=== PATIENT | male | born 1945 | race Caucasian/White ===

== ENCOUNTER 2017-04-21 05:26 | Inpatient (IN) | payer MEDICARE, OTHER ==
[2017-04-21 06:02] LABS: PARTIAL THROMBOPLASTIN TIME 37.8 SEC (23.5-35.8)
[2017-04-21 06:03] LABS: ABSOLUTE LYMPHOCYTES (AUTO) 0.6 10^3/uL (0.5-4.7); ABSOLUTE MONOCYTES (AUTO) 0.1 10^3/uL (0.1-1.4); ABSOLUTE NEUT (AUTO) 3.9 10^3/uL (1.7-8.2); BASOPHILS % (AUTO) 0.3 % (0-2); EOSINOPHILS % (AUTO) 0.2 % (0-6); HEMATOCRIT 38.9 % (37.9-51.0); HEMOGLOBIN 12.6 g/dL (13.5-17.0); HGB HCT DIFFERENCE -1.1; LYMPHOCYTES % (AUTO) 13.9 % (13-45); MEAN CORPUSCULAR HEMOGLOBIN 27.8 pg (27.0-33.4); MEAN CORPUSCULAR HGB CONC 32.4 g/dL (32.0-36.0); MEAN CORPUSCULAR VOLUME 86 fl (80-97); MONOCYTES % (AUTO) 1.4 % (3-13); RED BLOOD COUNT 4.54 10^6/uL (4.35-5.55); RED CELL DISTRIBUTION WIDTH 15.8 % (11.5-14.0); SEGMENTED NEUTROPHILS % (AUTO) 84.2 % (42-78); WHITE BLOOD COUNT 4.6 10^3/uL (4.0-10.5)
[2017-04-21 06:12] LABS: ALANINE AMINOTRANSFERASE 28 U/L (21-72); ALBUMIN 3.2 g/dL (3.5-5.0); ALKALINE PHOSPHATASE 128 U/L (38-126); ANION GAP 12 (5-19); ASPARTATE AMINO TRANSFERASE 19 U/L (17-59); BILIRUBIN,DIRECT 0.6 mg/dL (0.0-0.4); BILIRUBIN,TOTAL 1.3 mg/dL (0.2-1.3); BLOOD UREA NITROGEN 23 mg/dL (7-20); CALCIUM 8.8 mg/dL (8.4-10.2); CARBON DIOXIDE 25 mmol/L (22-30); CHLORIDE 103 mmol/L (98-107); CREATINE KINASE 72 U/L (55-170); GLUCOSE 74 mg/dL (75-110); POTASSIUM 4.2 mmol/L (3.6-5.0); SODIUM 140.4 mmol/L (137-145); TOTAL PROTEIN 5.7 g/dL (6.3-8.2)
[2017-04-21 06:25] LABS: CREATINE KINASE MB 0.39 ng/mL (<4.55); TROPONIN I 0.013 ng/mL
--- NOTE | 2017-04-21 06:26 | ER Document Report ---
ED General - General Mode of Arrival: Medic Information source: Patient TRAVEL OUTSIDE OF THE [place] IN LAST 30 DAYS: No - HPI Onset: This morning - Refer to HPI notes Similar symptoms previously: No Recently seen / treated by doctor: No <GORGE SAWYER - Last Filed: 04/21/17 09:06> <AISHA SAGASTUME - Last Filed: 04/21/17 10:05> - General Stated Complaint: CHEST PAIN Time Seen by Provider: 04/21/17 06:17 Notes: Patient is a 72 year old male presenting to the emergency department for chest pain and shortness of breath. Patient states he woke up between 1:30-2:00 this morning with the pain. Patient was brought in by EMS and had an initial pressure of 138/90. Patient was given 2 sublingual nitroglycerin and then had a systolic pressure of 89. Patient also states he fell at home recently. Patient states he had open heart surgery in 2007. Patient also has a history of CHF, CAD , A-fib, COPD, BPH, hypertension, hypercholesterolemia, and chronic lower extremity edema. (GORGE SAWYER) - Related Data Allergies/Adverse Reactions: mycins Allergy (Uncoded 11/15/15 17:38) Home Medications: Current Home Medications Isosorbide Mononitrate [Isosorbide Mononitrate ER] 15 mg PO DAILY 04/21/17 [ History] Metoprolol Succinate [Toprol Xl 25 mg Tab.sr] 50 mg PO DAILY 04/21/17 [History] Potassium Chloride [Potassium Chloride] 20 meq PO BID 04/21/17 [History] Warfarin Sodium [Warfarin Sodium] 56 mg PO DAILY 04/21/17 [History] Past Medical History - General Information source: Patient, [facility] Records - Social History Smoking Status: Smoker,Current Status Unk Family History: None - Past Medical History Cardiac Medical History: Reports: Hx Atrial Fibrillation, Hx Congestive Heart Failure, Hx Coronary Artery Disease, Hx Hypercholesterolemia, Hx Hypertension Pulmonary Medical History: Reports: Hx COPD Past Surgical History: Reports: Hx Cardiac Surgery - x6 cardiac bypass 2007 - Immunizations Hx Diphtheria, Pertussis, Tetanus Vaccination: Yes Hx Pneumococcal Vaccination: 09/21/08 <GORGE SAWYER - Last Filed: 04/21/17 09:06> Review of Systems - Review of Systems Constitutional: No symptoms reported EENT: No symptoms reported Cardiovascular: See HPI, Chest pain Respiratory: See HPI Gastrointestinal: See HPI Genitourinary: No symptoms reported Male Genitourinary: No symptoms reported Musculoskeletal: No symptoms reported Skin: No symptoms reported Hematologic/Lymphatic: No symptoms reported Neurological/Psychological: No symptoms reported -: Yes All other systems reviewed and negative <DAPHNEGORGE RILEY - Last Filed: 04/21/17 09:06> Physical Exam - Vital signs Interpretation: Hypotensive - 73/56 at 06:15, Febrile - General General appearance: Appears well, Alert In distress: Mild - HEENT Head: Normocephalic, Atraumatic Eyes: Normal Pupils: PERRL Mucous membranes: Moist - Respiratory Respiratory status: No respiratory distress Chest status: Nontender Breath sounds: Normal Chest palpation: Normal - Cardiovascular Rhythm: Regular Heart sounds: Normal auscultation Murmur: No - Abdominal Inspection: Obese Distension: No distension Bowel sounds: Normal Tenderness: Tender - epigastric tenderness to palpitation Organomegaly: No organomegaly - Back Back: Normal - Extremities General upper extremity: Normal inspection, Normal ROM, Normal strength General lower extremity: Edema - pitting edema to the lower extremities bilaterally, Normal ROM, Normal strength, Other - skin thickening bilaterally, right leg is warm to touch with erythema, skin is lichenified bilaterally - Neurological Neuro grossly intact: Yes Cognition: Normal Orientation: AAOx4 Constance Coma Scale Eye Opening: Spontaneous [place] Coma Scale Verbal: Oriented Constance Coma Scale Motor: Obeys Commands Constance Coma Scale Total: 15 Speech: Normal - Psychological Associated symptoms: Normal affect, Normal mood - Skin Skin Temperature: Warm Skin Moisture: Dry <GORGE SAWYER - Last Filed: 04/21/17 09:06> - Back Back: Tender - Diffusely tender to palpate <AISHA SAGASTUME - Last Filed: 04/21/17 10:05> - Vital signs Vitals: Pulse Ox 99 04/21/17 05:27 Course - Laboratory Result Diagrams: 04/21/17 05:30 04/21/17 05:30 <GORGE SAWYER - Last Filed: 04/21/17 09:06> - Laboratory Result Diagrams: 04/21/17 05:30 04/21/17 05:30 - Diagnostic Test Radiology reviewed: Image reviewed, Reports reviewed - CXR-cardiomegaly, no acute process - EKG Interpretation by Me EKG shows normal: Phil Campbell, Intervals, ST-T Waves. abnormal: QRS Complexes - Borderline R progression in the anterior leads Rate: Normal - 76 Rhythm: A.Fib Phil Campbell/QRS: LAHB/LAFB Voltage: Decreased voltage - Consults Dr. Gorman Time consulted: 08:40 Consulted provider: will come to ER Dr. Newman Consulted provider: will come to ER - Will come place a central line in this patient. <AISHA SAGASTUME - Last Filed: 04/21/17 10:05> - Vital Signs Vital signs: Temp Pulse Resp BP Pulse Ox 97.8 F 76 22 H 74/48 L 99 04/21/17 07:59 04/21/17 06:45 04/21/17 09:38 04/21/17 09:38 04/21/17 09:36 - Laboratory Laboratory results interpreted by me: 04/21/17 04/21/17 04/21/17 05:30 05:30 05:30 Hgb 12.6 L RDW 15.8 H Plt Count 143 L Seg Neutrophils % 84.2 H Monocytes % 1.4 L PT APTT BUN 23 H Creatinine 1.50 H Est GFR ( Amer) 55 L Est GFR (Non-Af Amer) 46 L Glucose 74 L Lactic Acid Direct Bilirubin 0.6 H Alkaline Phosphatase 128 H NT-Pro-B Natriuret Pep 1800 H Total Protein 5.7 L Albumin 3.2 L TSH Urine Protein Urine Urobilinogen 04/21/17 04/21/17 04/21/17 05:30 05:30 05:30 Hgb RDW Plt Count Seg Neutrophils % Monocytes % PT 25.0 H APTT 37.8 H BUN Creatinine Est GFR ( Amer) Est GFR (Non-Af Amer) Glucose Lactic Acid 2.7 H Direct Bilirubin Alkaline Phosphatase NT-Pro-B Natriuret Pep Total Protein Albumin TSH 5.42 H Urine Protein Urine Urobilinogen 04/21/17 07:20 Hgb RDW Plt Count Seg Neutrophils % Monocytes % PT APTT BUN Creatinine Est GFR ( Amer) Est GFR (Non-Af Amer) Glucose Lactic Acid Direct Bilirubin Alkaline Phosphatase NT-Pro-B Natriuret Pep Total Protein Albumin TSH Urine Protein 100 H Urine Urobilinogen 2.0 H Critical Care Note - Critical Care Note Total time excluding time spent on procedures (mins): 45 <AISHA SAGASTUME - Last Filed: 04/21/17 10:05> Discharge <GORGE SAWYER - Last Filed: 04/21/17 09:06> - Discharge Admitting Provider: Hospitalist Unit Admitted: ICU <AISHA SAGASTUME - Last Filed: 04/21/17 10:05> - Discharge Clinical Impression: Lymphedema, Chronic atrial fibrillation, Anticoagulated on Coumadin Sepsis Qualifiers: Sepsis type: sepsis due to unspecified organism Qualified Code(s): A41.9 - Sepsis, unspecified organism Hypotension Qualifiers: Hypotension type: unspecified hypotension type Qualified Code(s): I95.9 - Hypotension, unspecified Cellulitis Qualifiers: Site of cellulitis: extremity Site of cellulitis of extremity: lower extremity Laterality: right Qualified Code(s): L03.115 - Cellulitis of right lower limb Fever Qualifiers: Fever type: unspecified Qualified Code(s): R50.9 - Fever, unspecified GERD (gastroesophageal reflux disease) Qualifiers: Esophagitis presence: esophagitis presence not specified Qualified Code(s): K21.9 - Gastro-esophageal reflux disease without esophagitis Chronic back pain Qualifiers: Back pain location: back pain in unspecified location Back pain laterality: unspecified Qualified Code(s): M54.9 - Dorsalgia, unspecified Condition: Fair Disposition: ADMITTED INPATIENT Scribe Attestation: 04/21/17 10:05 I personally performed the services described in the documentation, reviewed and edited the documentation which was dictated to the scribe in my presence, and it accurately records my words and actions. (AISHA SAGASTUME) Scribe Documentation - Scribe Written by Scribeliecer:: Nea Pisano 04/21/17 6:50 acting as scribe for :: Ania <GORGE SAWYER - Last Filed: 04/21/17 09:06>
[2017-04-21] MEDS ORDERED: MAG HYDROX/AL HYDROX/SIMETH SUSP 30 ML UDCUP PO ONE (06:27)
[2017-04-21] MEDS ORDERED: FAMOTIDINE INJ/PF 20 MG/2 ML SDV IV ONE (06:27)
[2017-04-21] MEDS ORDERED: LIDOCAINE 2% VISCOUS SOLN 20 ML UDCUP PO ONE (06:27)
[2017-04-21] MEDS ORDERED: MORPHINE SULFATE 10 MG/ML INJ IV ONE ×2 (06:29→08:33)
[2017-04-21] MEDS ORDERED: ONDANSETRON HCL INJ/PF 4 MG/2 ML SDV IV ONE (06:29)
[2017-04-21] MEDS ORDERED: IPRATROPIUM/ALBUTEROL 0.5-2.5 MG/3 ML AMPUL NEB ONE (06:33)
--- NOTE | 2017-04-21 06:34 | RADIOLOGY REPORT (SQ) ---
EXAM DESCRIPTION: CHEST SINGLE VIEW COMPLETED DATE/TIME: 04/21/2017 6:10 am REASON FOR STUDY: CP COMPARISON: Chest x-ray 11/20/2015 EXAM PARAMETERS: NUMBER OF VIEWS: One view. TECHNIQUE: Single frontal radiographic view of the chest acquired. RADIATION DOSE: NA LIMITATIONS: The patient is rotated. FINDINGS: LUNGS AND PLEURA: No consolidation, pleural effusion or pneumothorax. MEDIASTINUM AND HILAR STRUCTURES: No masses. Contour normal. HEART AND VASCULAR STRUCTURES: The heart remains enlarged. No overt vascular congestion. BONES: No acute findings. HARDWARE: Sternotomy wires are present. IMPRESSION: Stable cardiomegaly. Otherwise, no acute radiographic finding in the chest. TECHNICAL DOCUMENTATION: JOB ID: [id number]
[2017-04-21] MEDS ORDERED: ERTAPENEM SODIUM INJ 1 GM VIAL IV ONE (06:50)
[2017-04-21 06:58] LABS: ADD ON TESTING BLD IN LAB ACKNOWLEDGE
[2017-04-21 07:08] LABS: MAGNESIUM 1.9 mg/dL (1.6-2.3)
[2017-04-21] MEDS ORDERED: NORMAL SALINE 1000 ML 250 ML IV ONE (07:09)
[2017-04-21 07:26] LABS: FREE T3 3.33 pg/mL (2.77-5.27)
[2017-04-21] MEDS ORDERED: ACETAMINOPHEN 325 MG TABLET PO ONE (07:35)
[2017-04-21 07:39] LABS: APPEARANCE,URINE CLOUDY; BILIRUBIN,URINE NEGATIVE (NEGATIVE); GLUCOSE, URINE NEGATIVE (NEGATIVE); KETONES,URINE NEGATIVE (NEGATIVE); LEUKOCYTE ESTERASE,URINE NEGATIVE (NEGATIVE); NITRITE,URINE NEGATIVE (NEGATIVE); PROTEIN,URINE 100 mg/dL (NEGATIVE); URINE SPECIFIC GRAVITY 1.012
[2017-04-21 07:39] LABS: THYROID STIMULATING HORMONE 5.42 uIU/mL (0.47-4.68)
[2017-04-21] MEDS ORDERED: NORMAL SALINE 250 ML IV PRN (08:07)
[2017-04-21] MEDS ORDERED: NORMAL SALINE 1000 ML 1,000 ML IV ONE (08:44)
[2017-04-21] MEDS ORDERED: LIDOCAINE 1% INJ-PF (10 MG/ML) 30 ML SDV ONE (09:32)
[2017-04-21] MEDS ORDERED: DEXTROSE 5%-WATER 250 ML with NOREPINEPHRINE BITARTRATE 4 MG IV PRN ×2 (09:39)
[2017-04-21] MEDS ORDERED: NOREPINEPHRINE BITARTRATE INJ/PF 4 MG/4 ML SDV IV ONE ×2 (09:45→14:47)
--- NOTE | 2017-04-21 09:55 | EKG REPORT ---
SEVERITY:- ABNORMAL ECG - ATRIAL FIBRILLATION LEFT ANTERIOR FASCICULAR BLOCK LOW VOLTAGE THROUGHOUT BORDERLINE R WAVE PROGRESSION, ANTERIOR LEADS : Confirmed by: Corey Rodrigues 21-Apr-2017 09:54:43
[2017-04-21] MEDS ORDERED: ONDANSETRON HCL INJ/PF 4 MG/2 ML SDV IV PRN (10:10)
[2017-04-21] MEDS ORDERED: RINGERS SOLUTION,LACTATED 1,000 ML IV ONE (10:10)
[2017-04-21] MEDS ORDERED: ACETAMINOPHEN 325 MG TABLET PO PRN (10:10)
[2017-04-21] MEDS ORDERED: OXYCODONE-ACETAMINOPHEN 5-325 MG TABLET PO PRN (10:10)
[2017-04-21] MEDS ORDERED: MAGNESIUM HYDROXIDE SUSP 30 ML UDCUP PO PRN (10:10)
[2017-04-21] MEDS ORDERED: VANCOMYCIN HCL 0 MG in DEXTROSE 5%-WATER 250 ML IV NR (10:15)
--- NOTE | 2017-04-21 10:59 | OPERATIVE REPORT E ---
Operative Report NAME: GENI HERNANDEZ : 1945 AGE: 72Y DATE OF SURGERY: 04/21/2017 ROOM: ED02 PREOPERATIVE DIAGNOSIS: Poor vein for IV access in patient with hypotension due to sepsis. POSTOPERATIVE DIAGNOSIS: Poor vein for IV access in patient with hypotension due to sepsis. PROCEDURE: Placement of right femoral vein catheter. SURGEON: LAMONT SIN M.D. ANESTHESIA: Local. INDICATION: This is a 72-year-old male being seen in the emergency room for CHF, hypotension, and sepsis. Patient has been on Coumadin and his INR is about 2.1. Therefore, decision was made to put a temporary central line through the right femoral vein. DESCRIPTION OF PROCEDURE: The patient was placed in supine position and the right groin prepped and draped in the usual sterile fashion. The right femoral vein was then identified with ultrasound. It was eventually cannulated after several attempts. Guidewire was then passed through the needle towards the area of the inferior vena cava and the needle pulled out of the guidewire. Puncture site was dilated with an 11-blade and a dilator passed through the guidewire. Dilator was removed and triple lumen catheter was then inserted through the guidewire into the area of the inferior vena cava. The guidewire was removed and the ports were easily aspirated blood and easily injected saline. The catheter was then anchored to the skin with 3-0 silk. Biopatch was placed at the puncture site and a transparent sterile dressing placed over the Biopatch and catheter. The patient tolerated the procedure well. DICTATING PHYSICIAN: LAMONT SIN M.D. [id number] PHY#: [id number] ID: [id number] JOB#: [id number] ACCT: [id number] cc:LAMONT SIN M.D. > MTDD
[2017-04-21] MEDS ORDERED: CEFEPIME 1 GM/D5W RTU 1 GM/50 ML RTUPB IV ONE (11:45)
--- NOTE | 2017-04-21 11:47 | PDOC H&P ---
History of Present Illness Admission Date/PCP: 04/21/17 09:06 dr francois Patient complains of: chest pain History of Present Illness: GENI HERNANDEZ is a 72 year old male presents from home via EMS with reports of 8/10 chest pain ascted with SOA and nausea. ED MD reports relieved with GI cocktail when he was more awake and alert, since that time he has become hypotensive and less responsive. He has received IV morphine and approx 1.5L IVFs with levophed now running at 12mcg and last MAP 57. I can wake him but not long enough to provide a ROS or PMH and his family left when they were told he was to be admitted to the hospital. I spoke with his only surviving first degree relatives, his siblings Anna and Jelani, who report he is to be FULL CODE . Jelani found him on the side of the bathtub this morning c/o n/v "from the bad [place] stew I had last night", apparently kept him up all night with intense burning in his chest asct'd with SOA, dizziness and weakness as well. no reports of diarrhea. Jelani turned to get him something to help and the patient fell back into the tub, possibly striking his head but not sure, there was no LOC and no blood anywhere after the fall and he was alert and talking and making sense afterward. EMS called to find him ill-appearing and transported to the ED for further evaluation. he was given 324mg ASA enroute. eval here seems to reveal septic shock most likely source is his Right leg cellulitis that on further review his brother tells me has been "festering" for a couple of weeks and "he is too hard headed to do anything about it!" Dr Newman has placed a femoral central line for access and we were asked to admit to the ICU for further care. Past Medical History Cardiac Medical History: Reports: Atrial Fibrillation - on chronic anticoagulation, Congestive Heart Failure, Coronary Artery Disease, Hyperlipidema, Hypertension Pulmonary Medical History: Reports: Chronic Obstructive Pulmonary Disease (COPD) Psychiatric Medical History: Denies: Depression Past Surgical History Past Surgical History: Reports: Cardiac Catheterization, Coronary Artery Bypass Graft, Coronary Stent Social History Information Source: Relative Smoking Status: Smoker,Current Status Unk - unknown amount Frequency of Alcohol Use: None Hx Recreational Drug Use: No Hx Prescription Drug Abuse: No - Advance Directive Resuscitation Status: Full Code Surrogate healthcare decision maker:: siblings, no POA or living will, no other family and never , no kids Family History Family History: Reviewed & Not Pertinent, CAD, Malignancy - colon ca in brother Parental Family History Reviewed: Yes Children Family History Reviewed: Yes Sibling(s) Family History Reviewed.: Yes Medication/Allergy Home Medications: Furosemide [Lasix 40 mg Tablet] 80 mg PO DAILY 09/09/15 Losartan Potassium 100 mg PO DAILY 09/09/15 Omeprazole [Prilosec] 40 mg PO QAM 09/09/15 Pravastatin Sodium [Pravachol] 40 mg PO QHS 09/09/15 Tamsulosin HCl [Flomax 0.4 mg Cap.sr] 0.4 mg PO DAILY 09/09/15 Aspirin [Ecotrin 81 mg EC Tablet] 81 mg PO DAILY #30 tabec 11/23/15 Isosorbide Mononitrate [Isosorbide Mononitrate ER] 15 mg PO DAILY 04/21/17 Metoprolol Succinate [Toprol Xl 25 mg Tab.sr] 50 mg PO DAILY 04/21/17 Potassium Chloride [Potassium Chloride] 20 meq PO BID 04/21/17 Warfarin Sodium [Warfarin Sodium] 56 mg PO DAILY 04/21/17 Allergies/Adverse Reactions: mycins Allergy (Uncoded 11/15/15 17:38) Review of Systems ROS unobtainable: Due to mental status Physical Exam Vital Signs: Temp Pulse Resp BP Pulse Ox 97.8 F 76 22 H 82/52 L 96 04/21/17 07:59 04/21/17 06:45 04/21/17 10:26 04/21/17 10:26 04/21/17 10:26 General appearance: PRESENT: disheveled, morbidly obese, well-developed, well- nourished Head exam: PRESENT: atraumatic - no evidence of trauma as yet, normocephalic Eye exam: ABSENT: conjunctival injection, scleral icterus Mouth exam: PRESENT: dry mucosa, neck supple Teeth exam: PRESENT: poor dentation Neck exam: ABSENT: JVD, tracheal deviation Respiratory exam: PRESENT: accessory muscle use - intercostal and abdominal, clear to auscultation emelyn, tachypnea. ABSENT: rhonchi, wheezes Cardiovascular exam: PRESENT: RRR. ABSENT: systolic murmur - distant heart sounds, difficult to hear Pulses: PRESENT: normal carotid pulses, normal radial pulses. ABSENT: normal dorsalis pedis pul GI/Abdominal exam: PRESENT: distended, hernia - umbilical hernia, hypoactive bowel sounds. ABSENT: guarding, rigid, tenderness Gentrourinary exam: PRESENT: indwelling catheter, other - central line in Rt femoral. ABSENT: lesions, scrotal swelling Extremities exam: PRESENT: clubbing, +2 edema Neurological exam: PRESENT: altered - seems sedated Skin exam: PRESENT: dry, rash - RLE from top of his foot to the groin is erythematous, hot and edematous, more than the left with purulent appearing vesicles and bullae on anterior pretibial area. ABSENT: warm - feet and hands cool but not cyanotic or mottled Results Laboratory Results: labs reviewed - cbc shows mild anemia, renal function off a bit Scr 1.5, lactic 2.7, BNP 1800 and TpI 0.013 - 0.05 Impressions: Chest X-Ray 04/21/17 05:27 IMPRESSION: Stable cardiomegaly. Otherwise, no acute radiographic finding in the chest. Assessment & Plan - Diagnosis (1) Cellulitis of leg, right Is this a current diagnosis for this admission?: YesPlan: progressive over the last several days to weeks and likely source for his presentation. (2) Septic shock Is this a current diagnosis for this admission?: Yes (3) Chest pain of uncertain etiology Is this a current diagnosis for this admission?: YesPlan: hx of significant CAD, will likely see a rise in his TpIs due to shock, will be difficult to differentiate from cardiac source. (4) Acute hypoxemic respiratory failure Is this a current diagnosis for this admission?: YesPlan: has hx of COPD but not O2 dependent at home. no evidence for acute flare on exam so likely related to sepsis and developing acidosis. (5) CHARO (acute kidney injury) Is this a current diagnosis for this admission?: YesPlan: likely hypovolemic related to sepsis however reported N/V for an unknown period of time prior to presentation. (6) Anticoagulated on Coumadin Is this a current diagnosis for this admission?: YesPlan: therapeutic on INR, will need to monitor while on abx. (8) GERD (gastroesophageal reflux disease) Qualifiers: Esophagitis presence: esophagitis presence not specified Qualified Code (s): K21.9 - Gastro-esophageal reflux disease without esophagitis Is this a current diagnosis for this admission?: YesPlan: unclear if source of his burning pain in his chest. treat with PPI bid and monitor. (9) CHF (congestive heart failure) Qualifiers: Congestive heart failure type: diastolic Congestive heart failure chronicity: chronic Qualified Code(s): I50.32 - Chronic diastolic ( congestive) heart failure Is this a current diagnosis for this admission?: YesPlan: review of old record shows hx of diastolic dysfxn, last echo 2014 shows preserved EF, LVH, MICHAEL and mod pulm HTN. will repeat now for changes. (10) FABRICIO on CPAP Is this a current diagnosis for this admission?: YesPlan: brother reports he is non compliant with his CPAP. (11) CAD (coronary artery disease) Qualifiers: Coronary Disease-Associated Artery/Lesion type: bypass graft, autologous vein Associated angina: angina presence unspecified Qualified Code(s) : I25.810 - Atherosclerosis of coronary artery bypass graft(s) without angina pectoris Is this a current diagnosis for this admission?: YesPlan: unclear if presentation c/w unstable angina, see above (12) Hyperlipidemia Qualifiers: Hyperlipidemia type: unspecified Qualified Code(s): E78.5 - Hyperlipidemia, unspecified Is this a current diagnosis for this admission?: YesPlan: high dose statin for now (13) Metabolic acidosis Is this a current diagnosis for this admission?: YesPlan: appears to be lactic acidosis, unclear source, possible sepsis but his initial complaint was N/V and burning into his chest raising possibility of GI source even ischemic bowel, especially in light of his physical findings. - Time Time Spent: Greater than 70 Minutes Critical Time spent with patient: 25-34 minutes Medications reviewed and adjusted accordingly: Yes - Inpatient Certification Based on my medical assessment, after consideration of the patient's comorbidities, presenting symptoms, or acuity I expect that the services needed warrant INPATIENT care.: Yes I certify that my determination is in accordance with my understanding of Medicare's requirements for reasonable and necessary INPATIENT services [42 CFR 412.3e].: Yes Medical Necessity: Significant Comorbidiites Make Outpatient Treatment Too Risky , Need Close Monitoring Due to Risk of Patient Decompensation, Need For IV Fluids, Need For Continuous Telemetry Monitoring, Need for Pain Control, Need for IV Antibiotics, Risk of Complication if Not Cared For in Hospital, Risk of Diagnosis Which Will Require Inpatient Eval/Care/Monitoring - Plan Summary Plan Summary: overall picture a bit muddled with possibly several things happening at once or singularly sepsis from the leg cellulitis. Unclear what role his GI, cardiovascular or renal system is playing in his initial presentation or if consequence of developing severe sepsis. Nevertheless, will treat down the sepsis pathway with aggressive IVFs, taking our chances with development of pulmonary edema given diastolic dysfxn, stress dose steroids, maintain adequate HCT, broad spectrum abx with cefepime and vanc in renal dose especially given his hx of corynebacterium in blood during prior cellulitis, vasopressors as needed. trend cardiac enzymes and treat empirically with ASA, high dose statin but hold beta donte and NTG due to shock and already anticoagulated on coumadin. ck echo given low voltage and distant heart sounds to eval for pericardial effusion and to further characterize the shock, r/o'ing cardiogenic source. ck head CT given hx of fall with possible head strike while on coumadin and current lethargy. ck ct chest, a/p to further eval this burning pain, hypoxia and possible GI source for acidosis and sepsis. intubate and mechanical vent if needed. ck ABG if condition deteriorates much further. supplemental O2 and pulm toilet as his condition dictates. overall prognosis is very guarded, outcome very much in doubt, septic shock carries high morbidity and mortality, even more so in someone as sick at baseline as he. discussed wtih surviving family members and suggested DNR with continued aggressive treatment but they are insistent on FULL CODE for now.
--- NOTE | 2017-04-21 11:52 | RADIOLOGY REPORT (SQ) ---
EXAM DESCRIPTION: CT HEAD WITHOUT COMPLETED DATE/TIME: 04/21/2017 11:43 am REASON FOR STUDY: fall with head strike COMPARISON: CT brain 12/18/2009 TECHNIQUE: Axial images acquired through the brain without intravenous contrast. Images reviewed wi th bone, brain and subdural windows. Images stored on PACS. All CT scanners at this facility use dose modulation, iterative reconstruction, and/or weight based d osing when appropriate to reduce radiation dose to as low as reasonably achievable (ALARA). [facility]: Dose Right [facility]: CareDose [facility]: Dose Right [facility]: Teradose 4D [facility]: FluxDrive RADIATION DOSE: 26.99 mGy. LIMITATIONS: Motion artifact throughout the study FINDINGS: Motion artifact throughout the study. On images without motion artifact, there is bifront al and biparietal chronic appearing small vessel white matter disease, and an old lacunar infarct in the left thalamus. No gross evidence of acute large territory ischemic change, acute intracranial hemorrhage, mass effec t, or midline shift. Paranasal sinuses, mastoid air cells grossly clear. IMPRESSION: Limited study due to motion artifact. Chronic white matter disease. No gross acute int racranial changes. TECHNICAL DOCUMENTATION: JOB ID: [id number] Quality ID # [id number]: Final reports with documentation of one or more dose reduction techniques (e.g., Au tomated exposure control, adjustment of the mA and/or kV according to patient size, use of iterative reconstruction technique) 2010 [employer]- All Rights Reserved
--- NOTE | 2017-04-21 11:58 | RADIOLOGY REPORT (SQ) ---
EXAM DESCRIPTION: CHEST SINGLE VIEW COMPLETED DATE/TIME: 04/21/2017 11:38 am REASON FOR STUDY: SOB COMPARISON: CT chest same date AP chest 04/21/2017 at 0601 hours EXAM PARAMETERS: NUMBER OF VIEWS: One view. TECHNIQUE: Single frontal radiographic view of the chest acquired. RADIATION DOSE: NA LIMITATIONS: None. FINDINGS: LUNGS AND PLEURA: Minimal right basilar atelectasis. No pleural effusions or pneumothorax. MEDIASTINUM AND HILAR STRUCTURES: No masses. Contour normal. HEART AND VASCULAR STRUCTURES: Stable moderate cardiomegaly and old sternotomy and CABG. BONES: No acute findings. HARDWARE: None in the chest. OTHER: No other significant finding. IMPRESSION: Minimal right basilar atelectasis TECHNICAL DOCUMENTATION: JOB ID: [id number]
[2017-04-21] MEDS ORDERED: VANCOMYCIN HCL 2,000 MG in DEXTROSE 5%-WATER 500 ML IV SCH (12:00)
[2017-04-21] MEDS ORDERED: PANTOPRAZOLE SODIUM 40 MG VIAL IV ONE (12:00)
--- NOTE | 2017-04-21 12:22 | RADIOLOGY REPORT (SQ) ---
EXAM DESCRIPTION: CT CHEST WITHOUT; CT ABD/PELVIS NO ORAL OR IV COMPLETED DATE/TIME: 04/21/2017 11:16 am REASON FOR STUDY: chest pain, hypoxia; abdominal pain COMPARISON: AP chest 04/21/2017 CT abdomen pelvis 11/16/2015 CT angio chest 11/15/2015 CT chest 12/18/2009 TECHNIQUE: CT scan of the chest performed without intravenous contrast using helical scanning techni que. Images reviewed with lung, soft tissue and bone windows. Reconstructed coronal and sagittal MPR images reviewed. All images stored on PACS. CT scan of the abdomen and pelvis performed without intravenous contrast and withoutoral contrast usi ng helical scanning technique with dynamic intravenous contrast injection. Images reviewed with lung , soft tissue and bone windows. Reconstructed coronal and sagittal MPR images reviewed. All images stored on PACS. All CT scanners at this facility use dose modulation, iterative reconstruction, and/or weight based d osing when appropriate to reduce radiation dose to as low as reasonably achievable (ALARA). [facility]: Dose Right [facility]: CareDose [facility]: Dose Right [facility]: Teradose 4D [facility]: [employer] RADIATION DOSE: 10; 10.16 mGy. LIMITATIONS: No technical limitations. FINDINGS: CHEST: AXILLAE: No adenopathy. CHEST WALL: No masses. No subcutaneous air. Acute minimally displaced left lateral 10th rib fractur e. LUNGS: There is chronic bandlike scarring or atelectasis at the left lung base. Minimal airspace dis ease at the right lung base is present atelectasis versus pneumonia. PLEURA: No effusions. No calcifications. THYROID: No masses or significant asymmetry. HILAR AND MEDIASTINAL STRUCTURES: No identified masses or abnormal nodes. AORTA AND GREAT VESSELS: No aneurysm. HEART: Moderate to marked cardiomegaly. Old sternotomy and CABG with calcified [place] coronary arter ies. HARDWARE AND LIFELINES: None. BONES: Acute minimally displaced left lateral 10th rib fracture OTHER: No other significant finding. ABDOMEN AND PELVIS: LIVER: Normal size. No masses or dilated ducts. SPLEEN: Normal size. No focal lesions. PANCREAS: No masses. No significant calcifications. No adjacent inflammation or peripancreatic flui d collections. Pancreatic duct not dilated. GALLBLADDER: Faintly radiodense gallstones are present without gross gallbladder wall thickening or p ericholecystic fluid ADRENAL GLANDS: No significant masses or asymmetry. RIGHT KIDNEY AND URETER: No solid masses. Assessment limited by lack of IV contrast. No significant c alcification. No hydronephrosis or hydroureter. LEFT KIDNEY AND URETER: No solid masses. Assessment limited by lack of IV contrast. No significant ca lcification. No hydronephrosis or hydroureter. AORTA AND VESSELS: No aneurysm. RETROPERITONEUM: No retroperitoneal adenopathy, hemorrhage or masses. APPENDIX: Not identified LARGE AND SMALL BOWEL: No dilatation. No masses. No wall thickening. ABDOMINAL WALL: Small umbilical hernia containing omental fat and ascites on axial image 99 PERITONEAL CAVITY: Moderate ascites. No free intraperitoneal air. PELVIS: No mass or free fluid. Normal bladder. BONES: No significant or acute findings. OTHER: Right common femoral vein triple-lumen catheter with the tip in the right common iliac vein. IMPRESSION: Left lateral 10th rib fracture Right basilar atelectasis. Left lung base chronic scarring. Moderate ascites throughout the abdomen and pelvis TECHNICAL DOCUMENTATION: JOB ID: [id number] Quality ID # [id number]: Final reports with documentation of one or more dose reduction techniques (e.g., Au tomated exposure control, adjustment of the mA and/or kV according to patient size, use of iterative reconstruction technique) 2010 [employer]- All Rights Reserved
--- NOTE | 2017-04-21 12:22 | RADIOLOGY REPORT (SQ) ---
EXAM DESCRIPTION: CT CHEST WITHOUT; CT ABD/PELVIS NO ORAL OR IV COMPLETED DATE/TIME: 04/21/2017 11:16 am REASON FOR STUDY: chest pain, hypoxia; abdominal pain COMPARISON: AP chest 04/21/2017 CT abdomen pelvis 11/16/2015 CT angio chest 11/15/2015 CT chest 12/18/2009 TECHNIQUE: CT scan of the chest performed without intravenous contrast using helical scanning techni que. Images reviewed with lung, soft tissue and bone windows. Reconstructed coronal and sagittal MPR images reviewed. All images stored on PACS. CT scan of the abdomen and pelvis performed without intravenous contrast and withoutoral contrast usi ng helical scanning technique with dynamic intravenous contrast injection. Images reviewed with lung , soft tissue and bone windows. Reconstructed coronal and sagittal MPR images reviewed. All images stored on PACS. All CT scanners at this facility use dose modulation, iterative reconstruction, and/or weight based d osing when appropriate to reduce radiation dose to as low as reasonably achievable (ALARA). [facility]: Dose Right [facility]: CareDose [facility]: Dose Right [facility]: Teradose 4D [facility]: [employer] RADIATION DOSE: 10; 10.16 mGy. LIMITATIONS: No technical limitations. FINDINGS: CHEST: AXILLAE: No adenopathy. CHEST WALL: No masses. No subcutaneous air. Acute minimally displaced left lateral 10th rib fractur e. LUNGS: There is chronic bandlike scarring or atelectasis at the left lung base. Minimal airspace dis ease at the right lung base is present atelectasis versus pneumonia. PLEURA: No effusions. No calcifications. THYROID: No masses or significant asymmetry. HILAR AND MEDIASTINAL STRUCTURES: No identified masses or abnormal nodes. AORTA AND GREAT VESSELS: No aneurysm. HEART: Moderate to marked cardiomegaly. Old sternotomy and CABG with calcified [place] coronary arter ies. HARDWARE AND LIFELINES: None. BONES: Acute minimally displaced left lateral 10th rib fracture OTHER: No other significant finding. ABDOMEN AND PELVIS: LIVER: Normal size. No masses or dilated ducts. SPLEEN: Normal size. No focal lesions. PANCREAS: No masses. No significant calcifications. No adjacent inflammation or peripancreatic flui d collections. Pancreatic duct not dilated. GALLBLADDER: Faintly radiodense gallstones are present without gross gallbladder wall thickening or p ericholecystic fluid ADRENAL GLANDS: No significant masses or asymmetry. RIGHT KIDNEY AND URETER: No solid masses. Assessment limited by lack of IV contrast. No significant c alcification. No hydronephrosis or hydroureter. LEFT KIDNEY AND URETER: No solid masses. Assessment limited by lack of IV contrast. No significant ca lcification. No hydronephrosis or hydroureter. AORTA AND VESSELS: No aneurysm. RETROPERITONEUM: No retroperitoneal adenopathy, hemorrhage or masses. APPENDIX: Not identified LARGE AND SMALL BOWEL: No dilatation. No masses. No wall thickening. ABDOMINAL WALL: Small umbilical hernia containing omental fat and ascites on axial image 99 PERITONEAL CAVITY: Moderate ascites. No free intraperitoneal air. PELVIS: No mass or free fluid. Normal bladder. BONES: No significant or acute findings. OTHER: Right common femoral vein triple-lumen catheter with the tip in the right common iliac vein. IMPRESSION: Left lateral 10th rib fracture Right basilar atelectasis. Left lung base chronic scarring. Moderate ascites throughout the abdomen and pelvis TECHNICAL DOCUMENTATION: JOB ID: [id number] Quality ID # [id number]: Final reports with documentation of one or more dose reduction techniques (e.g., Au tomated exposure control, adjustment of the mA and/or kV according to patient size, use of iterative reconstruction technique) 2010 [employer]- All Rights Reserved
[2017-04-21] MEDS ORDERED: HYDROCORTISONE SOD SUCCINATE INJ/PF 100 MG/2 ML SDV IV ONE (12:30)
[2017-04-21 12:47] LABS: ARTERIAL BLOOD BASE EXCESS -4.2 mmol/L; ARTERIAL BLOOD O2 SATURATION 96.9 % (94-98)
[2017-04-21] MEDS ORDERED: PHENYLEPHRINE HCL INJ/PF 10 MG/1 ML SDV ONE ×2 (13:07→17:50)
[2017-04-21] MEDS: DEXTROSE 5%-WATER 250 ML with PHENYLEPHRINE HCL 40 MG IV PRN ×4 (13:15→21:37)
[2017-04-21] MEDS ORDERED: RINGERS SOLUTION,LACTATED 1,000 ML IV PRN (13:27)
[2017-04-21] MEDS: IPRATROPIUM/ALBUTEROL 0.5-2.5 MG/3 ML AMPUL NEB PRN (13:40)
[2017-04-21] MEDS ORDERED: RINGERS SOLUTION,LACTATED 2,000 ML IV ONE (14:00)
[2017-04-21 16:26] LABS: HEMATOCRIT 42.6 % (37.9-51.0); HEMOGLOBIN 13.4 g/dL (13.5-17.0); HGB HCT DIFFERENCE -2.4; MEAN CORPUSCULAR HEMOGLOBIN 27.4 pg (27.0-33.4); MEAN CORPUSCULAR HGB CONC 31.4 g/dL (32.0-36.0); MEAN CORPUSCULAR VOLUME 87 fl (80-97); RED BLOOD COUNT 4.89 10^6/uL (4.35-5.55); RED CELL DISTRIBUTION WIDTH 16.3 % (11.5-14.0)
[2017-04-21 16:46] LABS: ANION GAP 15 (5-19); BLOOD UREA NITROGEN 23 mg/dL (7-20); CALCIUM 8.1 mg/dL (8.4-10.2); CARBON DIOXIDE 19 mmol/L (22-30); CHLORIDE 102 mmol/L (98-107); CREATININE RESULT 1.93 mg/dL (0.52-1.25); GLUCOSE 105 mg/dL (75-110); POTASSIUM 4.3 mmol/L (3.6-5.0); SODIUM 136.2 mmol/L (137-145)
[2017-04-21 17:00] LABS: BASOPHILS % (MANUAL) 0 % (0-2); EOSINOPHILS % (MANUAL) 0 % (0-6); LYMPHOCYTES % (MANUAL) 9 % (13-45); TOTAL CELLS COUNTED 100
[2017-04-21 17:01] LABS: BAND NEUTROPHILS % (MANUAL) 21 % (3-5); HYPOCHROMASIA SLIGHT; POLYCHROMASIA SLIGHT
[2017-04-21 17:02] LABS: WHITE BLOOD COUNT 22.3 10^3/uL (4.0-10.5)
[2017-04-21] MEDS: DEXTROSE 5%-WATER 250 ML with NOREPINEPHRINE BITARTRATE 4 MG IV PRN ×4 (17:38→20:56)
[2017-04-21] MEDS: TAMSULOSIN HCL 0.4 MG CAP.SR.24H PO SCH (18:00)
--- NOTE | 2017-04-21 20:28 | RADIOLOGY REPORT (SQ) ---
EXAM DESCRIPTION: U/S RETROPERITON (RENAL/AORTA) COMPLETED DATE/TIME: 04/21/2017 8:10 pm REASON FOR STUDY: anuria COMPARISON: Abdominal CT scan 04/21/2017. TECHNIQUE: Dynamic and static grayscale images acquired of the kidneys and bladder and recorded on P ACS. Additional selected color Doppler and spectral images recorded. LIMITATIONS: Study is limited due to the patient's body habitus in the amount of abdominal ascitic f luid. FINDINGS: RIGHT KIDNEY: 9.7 cm in length. Normal echogenicity. No solid or suspicious masses. No hydronephrosis. No calcifications. LEFT KIDNEY: 10.8 cm in length. Normal echogenicity. No solid or suspicious masses. No hydrone phrosis. No calcifications. BLADDER: The bladder is not well visualized due to its non distended state. OTHER FINDINGS: Ascitic fluid is identified. IMPRESSION: Limited study as noted above. No definite renal abnormalities were identified. Other f indings as noted above TECHNICAL DOCUMENTATION: JOB ID: [id number] [email or web address]- All Rights Reserved
[2017-04-21] MEDS: ATORVASTATIN CALCIUM 80 MG TABLET PO SCH (21:36)
[2017-04-21] MEDS: CEFEPIME 1 GM/D5W RTU 1 GM/50 ML RTUPB IV SCH (21:36)
[2017-04-21] MEDS: PANTOPRAZOLE SODIUM 40 MG VIAL IV SCH (21:37)
[2017-04-21] MEDS: HYDROCORTISONE SOD SUCCINATE INJ/PF 100 MG/2 ML SDV IV SCH (21:37)
--- NOTE | 2017-04-21 21:57 | XCELERA REPORT ---
[address] [address] Transthoracic Echocardiogram Report Name: GENI HERNANDEZ Age: 72 yrs Gender: Male : 1945 Patient Status: Inpatient Patient Location: \S\ED02\S\A Study Date: 04/21/2017 10:47 AM Height: 68 in Weight: 292 lb BSA: 2.4 m2 Procedure: A two-dimensional transthoracic echocardiogram with color flow and Doppler was performed. Study Quality: Technically suboptimal. Reason For Study: Pericardial Effusion History: Pericardial Effusion. Ordering Physician: DACIA GROSS Performed By: Haley Beaver Interpretation Summary The left ventricle is normal in size. There is normal left ventricular wall thickness. LV EF is 55% Left ventricular systolic function is normal. The left ventricular wall motion is normal. The right ventricle is moderate to severely dilated. The left atrium is severely dilated. There is no evidence of mitral valve prolapse. There is no mitral valve stenosis. There is a trace amount of mitral regurgitation There is no aortic valve stenosis There is no LVOT obstruction. No aortic regurgitation is present. There is no tricuspid stenosis. There is a moderate amount of tricuspid regurgitation There is moderate pulmonary hypertension by echo RVSP is 50 to 55 mm of Hg, with RA mean of 15 to20 There is no pericardial effusion. MMode/2D Measurements \T\ Calculations RVDd: 4.1 cm LVIDd: 4.3 cm FS: 28.4 % Ao root diam: 3.4 cm IVSd: 1.1 cm LVIDs: 3.1 cm EDV(Teich): 84.4 ml LVPWd: 1.2 cm ESV(Teich): 37.9 ml Ao root area: 8.8 cm2 EF(Teich): 55.1 % LA dimension: 5.0 cm LVOT diam: 2.3 cm LVOT area: 4.3 cm2 Doppler Measurements \T\ Calculations MV E max crystal: MV P1/2t max crystal: Ao V2 max: LV V1 max P.6 cm/sec 97.9 cm/sec 84.0 cm/sec 2.2 mmHg MV P1/2t: 50.5 msec Ao max PG: LV V1 max: MVA(P1/2t): 4.4 cm2 2.8 mmHg 74.7 cm/sec MV dec slope: SANDY(V,D): 3.8 cm2 567.7 cm/sec2 PA V2 max: TR max crystal: 60.9 cm/sec 294.5 cm/sec PA max PG: TR max P.7 mmHg 1.5 mmHg Left Ventricle The left ventricle is normal in size. There is normal left ventricular wall thickness. LV EF is 55%. Left ventricular systolic function is normal. LV diastolic function could not be adequately assessed due to atrial fibrilation. The left ventricular wall motion is normal. Right Ventricle The right ventricle is moderate to severely dilated. The right ventricular systolic function is mildly reduced. Atria The right atrium is moderately dilated. The left atrium is severely dilated. Mitral Valve There is mild mitral annular calcification. There is no evidence of mitral valve prolapse. There is no vegetation seen on the mitral valve. There is no mitral valve stenosis. There is a trace amount of mitral regurgitation. Aortic Valve There is no aortic valvular vegetation. There is no aortic valve stenosis. There is no LVOT obstruction. No aortic regurgitation is present. Tricuspid Valve There is no tricuspid stenosis. There is a moderate amount of tricuspid regurgitation. There is moderate pulmonary hypertension by echo. RVSP is 50 to 55 mm of Hg, with RA mean of 15 to20. Pulmonic Valve There is no pulmonic valvular stenosis. There is no pulmonic valvular regurgitation. Great Vessels The aortic root is normal size. The inferior vena cava appeared dilated and decreased < 50% with respiration (RAP 15-20 mmHg). Effusions There is no pericardial effusion. : DACIA GROSS > Nicol Grimes
[2017-04-21] MEDS ORDERED: FAMOTIDINE INJ/PF 20 MG/2 ML SDV IV SCH (22:00)
[2017-04-21 22:35] LABS: HEMOGLOBIN 13.8 g/dL (13.5-17.0); HGB HCT DIFFERENCE -2.6; MEAN CORPUSCULAR HEMOGLOBIN 27.8 pg (27.0-33.4); MEAN CORPUSCULAR HGB CONC 31.4 g/dL (32.0-36.0); MEAN CORPUSCULAR VOLUME 89 fl (80-97); RED BLOOD COUNT 4.98 10^6/uL (4.35-5.55); RED CELL DISTRIBUTION WIDTH 16.2 % (11.5-14.0); WHITE BLOOD COUNT 28.1 10^3/uL (4.0-10.5)
[2017-04-21 22:47] LABS: BAND NEUTROPHILS % (MANUAL) 26 % (3-5); BASOPHILS % (MANUAL) 0 % (0-2); EOSINOPHILS % (MANUAL) 0 % (0-6); LYMPHOCYTES % (MANUAL) 10 % (13-45); TOTAL CELLS COUNTED 100
[2017-04-21 22:49] LABS: TOXIC GRANULATION SLIGHT; TOXIC VACUOLATION PRESENT
[2017-04-21 22:50] LABS: ANISOCYTOSIS 1+; BURR CELLS SLIGHT; HYPOCHROMASIA SLIGHT; OVALOCYTES SLIGHT; POIKILOCYTOSIS SLIGHT; POLYCHROMASIA SLIGHT
[2017-04-21 22:59] LABS: ANION GAP 13 (5-19); BLOOD UREA NITROGEN 26 mg/dL (7-20); CALCIUM 7.9 mg/dL (8.4-10.2); CARBON DIOXIDE 21 mmol/L (22-30); CHLORIDE 99 mmol/L (98-107); CREATININE RESULT 2.13 mg/dL (0.52-1.25); GLUCOSE 122 mg/dL (75-110); POTASSIUM 4.7 mmol/L (3.6-5.0)
[2017-04-22] MEDS: DEXTROSE 5%-WATER 250 ML with NOREPINEPHRINE BITARTRATE 4 MG IV PRN ×4 (00:19→02:04)
[2017-04-22] MEDS: DEXTROSE 5%-WATER 250 ML with PHENYLEPHRINE HCL 40 MG IV PRN ×8 (02:05→16:46)
[2017-04-22] MEDS: RINGERS SOLUTION,LACTATED 1,000 ML IV PRN ×3 (02:05→21:28)
[2017-04-22] MEDS: HYDROCORTISONE SOD SUCCINATE INJ/PF 100 MG/2 ML SDV IV SCH ×3 (05:04→21:25)
[2017-04-22 05:37] LABS: ALANINE AMINOTRANSFERASE 41 U/L (21-72); ALBUMIN 2.9 g/dL (3.5-5.0); ALKALINE PHOSPHATASE 89 U/L (38-126); ANION GAP 12 (5-19); ASPARTATE AMINO TRANSFERASE 66 U/L (17-59); BILIRUBIN,DIRECT 1.1 mg/dL (0.0-0.4); BILIRUBIN,TOTAL 1.7 mg/dL (0.2-1.3); BLOOD UREA NITROGEN 28 mg/dL (7-20); CALCIUM 7.8 mg/dL (8.4-10.2); CARBON DIOXIDE 20 mmol/L (22-30); CHLORIDE 100 mmol/L (98-107); CREATININE RESULT 2.24 mg/dL (0.52-1.25); GLUCOSE 101 mg/dL (75-110); MAGNESIUM 1.7 mg/dL (1.6-2.3); POTASSIUM 5.3 mmol/L (3.6-5.0); SODIUM 132.1 mmol/L (137-145); TOTAL PROTEIN 5.2 g/dL (6.3-8.2)
[2017-04-22 05:45] LABS: HEMATOCRIT 44.6 % (37.9-51.0); HGB HCT DIFFERENCE -2.6; MEAN CORPUSCULAR HEMOGLOBIN 27.5 pg (27.0-33.4); MEAN CORPUSCULAR HGB CONC 31.5 g/dL (32.0-36.0); MEAN CORPUSCULAR VOLUME 88 fl (80-97); RED BLOOD COUNT 5.09 10^6/uL (4.35-5.55); RED CELL DISTRIBUTION WIDTH 16.8 % (11.5-14.0)
[2017-04-22 05:57] LABS: BAND NEUTROPHILS % (MANUAL) 26 % (3-5); BASOPHILS % (MANUAL) 0 % (0-2); EOSINOPHILS % (MANUAL) 0 % (0-6); LYMPHOCYTES % (MANUAL) 12 % (13-45); TOTAL CELLS COUNTED 100
[2017-04-22 05:59] LABS: ANISOCYTOSIS 1+; BURR CELLS SLIGHT; OVALOCYTES SLIGHT; POIKILOCYTOSIS SLIGHT; POLYCHROMASIA SLIGHT; TOXIC GRANULATION 1+; TOXIC VACUOLATION PRESENT
[2017-04-22 06:07] LABS: WHITE BLOOD COUNT 32.9 10^3/uL (4.0-10.5)
[2017-04-22] MEDS: MORPHINE SULFATE 10 MG/ML INJ IV PRN ×4 (08:42→23:02)
[2017-04-22] MEDS: IPRATROPIUM/ALBUTEROL 0.5-2.5 MG/3 ML AMPUL NEB PRN (08:54)
[2017-04-22] MEDS ORDERED: TAMSULOSIN HCL 0.4 MG CAP.SR.24H PO SCH (10:00)
[2017-04-22] MEDS: ASPIRIN 325 MG TABLET, ENT COATED PO SCH (10:36)
[2017-04-22] MEDS: CEFEPIME 1 GM/D5W RTU 1 GM/50 ML RTUPB IV SCH (10:36)
[2017-04-22] MEDS: DOCUSATE SODIUM 100 MG CAPSULE PO SCH (10:36)
[2017-04-22] MEDS: PANTOPRAZOLE SODIUM 40 MG VIAL IV SCH ×2 (10:36→21:25)
--- NOTE | 2017-04-22 11:54 | PDOC PROGRESS REPORT ---
Subjective Progress Note for:: 04/22/17 Subjective:: reason for visit: f/u septic shock, cellulitis, hypoxia, ascites, CHARO hospital course: GENI HERNANDEZ is a 72 year old male presents from home via EMS with reports of 8/10 chest pain ascted with SOA and nausea. ED MD reports relieved with GI cocktail when he was more awake and alert, since that time he has become hypotensive and less responsive. He has received IV morphine and approx 1.5L IVFs with levophed now running at 12mcg and last MAP 57. I can wake him but not long enough to provide a ROS or PMH and his family left when they were told he was to be admitted to the hospital. I spoke with his only surviving first degree relatives, his siblings Anan and Jelani, who report he is to be FULL CODE . Jelani found him on the side of the bathtub this morning c/o n/v "from the bad [employer] stew I had last night", apparently kept him up all night with intense burning in his chest asct'd with SOA, dizziness and weakness as well. no reports of diarrhea. Jelani turned to get him something to help and the patient fell back into the tub, possibly striking his head but not sure, there was no LOC and no blood anywhere after the fall and he was alert and talking and making sense afterward. EMS called to find him ill- appearing and transported to the ED for further evaluation. he was given 324mg ASA enroute. eval here seems to reveal septic shock most likely source is his Right leg cellulitis that on further review his brother tells me has been "festering" for a couple of weeks and "he is too hard headed to do anything about it!" Dr Newman has placed a femoral central line for access and we were asked to admit to the ICU for further care. admitted to the ICU with a great deal of difficulty managing his BPs now requiring 2 vasopressors and continued IVF resuscitation. He is also intermittenly BIPAP dependent due to increased WOB without it. overall his condition is stable this morning but remains critical. ROS: he is alert and oriented and c/o sharp, stabbing low back pain without asct'd symptoms, worse with certain positions, improved with others, nonradiating. he still c/o sharp stabbing left sided chest pain radiating into his epigastrium asct'd with SOA, worse with deep breath and cough resulting in rapid shallow breathing, nothing seems to make it better. total 10 systems reviewed, remaining systems negative. Physical Exam Vital Signs: Temp Pulse Resp BP Pulse Ox 98.2 F 88 16 121/83 91 L 04/22/17 10:00 04/22/17 10:00 04/22/17 10:00 04/22/17 10:00 04/22/17 10:00 Intake & Output 04/21/17 04/22/17 04/23/17 06:59 06:59 06:59 Intake Total 6193 Output Total 160 300 Balance 6033 -300 Weight 123.3 kg General appearance: PRESENT: mild distress - from his back pain, morbidly obese , well-developed, well-nourished Head exam: PRESENT: atraumatic, normocephalic Eye exam: PRESENT: EOMI. ABSENT: conjunctival injection, scleral icterus Mouth exam: PRESENT: moist, neck supple Teeth exam: PRESENT: poor dentation Neck exam: PRESENT: full ROM. ABSENT: JVD, tracheal deviation Respiratory exam: PRESENT: accessory muscle use, crackles - bases. ABSENT: rhonchi, wheezes Cardiovascular exam: PRESENT: RRR. ABSENT: systolic murmur Pulses: PRESENT: normal radial pulses, normal dorsalis pedis pul GI/Abdominal exam: PRESENT: distended, hypoactive bowel sounds, soft. ABSENT: tenderness Gentrourinary exam: PRESENT: indwelling catheter - dk yellow urine. ABSENT: scrotal swelling Extremities exam: PRESENT: +2 edema - R>L. ABSENT: calf tenderness Musculoskeletal exam: PRESENT: full ROM, tenderness - over the right leg Neurological exam: PRESENT: alert, awake, oriented to person, oriented to place , oriented to time, oriented to situation Psychiatric exam: PRESENT: anxious, appropriate affect, normal mood Focused psych exam: ABSENT: pressured speech, psychomotor agitation Skin exam: PRESENT: warm - rt leg remains erythematous and hot to touch, improved lymghangitic streaking Results Laboratory Results: 04/22/17 05:11 04/22/17 05:11 04/21/17 04/21/17 04/21/17 10:09 12:10 16:00 WBC RBC Hgb Hct MCV MCH MCHC RDW Plt Count Seg Neutrophils % Lymphocytes % Monocytes % Eosinophils % Basophils % Absolute Neutrophils Absolute Lymphocytes Absolute Monocytes Absolute Eosinophils Absolute Basophils Carbonic Acid 1.25 HCO3/H2CO3 Ratio 17:1 ABG pH 7.33 L ABG pCO2 41.4 ABG pO2 95.9 ABG HCO3 21.5 ABG O2 Saturation 96.9 ABG Base Excess -4.2 FiO2 4L Sodium 136.2 L Potassium 4.3 Chloride 102 Carbon Dioxide 19 L Anion Gap 15 BUN 23 H Creatinine 1.93 H Est GFR ( Amer) 41 L Est GFR (Non-Af Amer) 34 L Glucose 105 Lactic Acid 2.7 H Calcium 8.1 L Magnesium Total Bilirubin AST ALT Alkaline Phosphatase Total Protein Albumin 04/21/17 04/21/17 04/21/17 16:00 22:15 22:15 WBC 22.3 H D 28.1 H RBC 4.89 4.98 Hgb 13.4 L 13.8 Hct 42.6 44.0 MCV 87 89 MCH 27.4 27.8 MCHC 31.4 L 31.4 L RDW 16.3 H 16.2 H Plt Count 168 179 Seg Neutrophils % Not Reportable Not Reportable Lymphocytes % Not Reportable Not Reportable Monocytes % Not Reportable Not Reportable Eosinophils % Not Reportable Not Reportable Basophils % Not Reportable Not Reportable Absolute Neutrophils Not Reportable Not Reportable Absolute Lymphocytes Not Reportable Not Reportable Absolute Monocytes Not Reportable Not Reportable Absolute Eosinophils Not Reportable Not Reportable Absolute Basophils Not Reportable Not Reportable Carbonic Acid HCO3/H2CO3 Ratio ABG pH ABG pCO2 ABG pO2 ABG HCO3 ABG O2 Saturation ABG Base Excess FiO2 Sodium 133.0 L Potassium 4.7 Chloride 99 Carbon Dioxide 21 L Anion Gap 13 BUN 26 H Creatinine 2.13 H Est GFR ( Amer) 37 L Est GFR (Non-Af Amer) 31 L Glucose 122 H Lactic Acid Calcium 7.9 L Magnesium Total Bilirubin AST ALT Alkaline Phosphatase Total Protein Albumin 04/21/17 04/22/17 04/22/17 22:15 05:11 05:11 WBC 32.9 H* RBC 5.09 Hgb 14.0 Hct 44.6 MCV 88 MCH 27.5 MCHC 31.5 L RDW 16.8 H Plt Count 171 Seg Neutrophils % Not Reportable Lymphocytes % Not Reportable Monocytes % Not Reportable Eosinophils % Not Reportable Basophils % Not Reportable Absolute Neutrophils Not Reportable Absolute Lymphocytes Not Reportable Absolute Monocytes Not Reportable Absolute Eosinophils Not Reportable Absolute Basophils Not Reportable Carbonic Acid HCO3/H2CO3 Ratio ABG pH ABG pCO2 ABG pO2 ABG HCO3 ABG O2 Saturation ABG Base Excess FiO2 Sodium 132.1 L Potassium 5.3 H Chloride 100 Carbon Dioxide 20 L Anion Gap 12 BUN 28 H Creatinine 2.24 H Est GFR ( Amer) 35 L Est GFR (Non-Af Amer) 29 L Glucose 101 Lactic Acid 2.9 H Calcium 7.8 L Magnesium 1.7 Total Bilirubin 1.7 H AST 66 H ALT 41 Alkaline Phosphatase 89 Total Protein 5.2 L Albumin 2.9 L 04/21/17 04/21/17 04/21/17 10:09 10:09 16:00 Troponin I 0.050 Cancelled 0.109 04/21/17 22:15 Troponin I 0.332 Impressions: Abdomen/Pelvis CT 04/21/17 00:00 IMPRESSION: Left lateral 10th rib fracture Right basilar atelectasis. Left lung base chronic scarring. Moderate ascites throughout the abdomen and pelvis Chest CT 04/21/17 00:00 IMPRESSION: Left lateral 10th rib fracture Right basilar atelectasis. Left lung base chronic scarring. Moderate ascites throughout the abdomen and pelvis Head CT 04/21/17 00:00 IMPRESSION: Limited study due to motion artifact. Chronic white matter disease. No gross acute intracranial changes. Renal Ultrasound 04/21/17 00:00 IMPRESSION: Limited study as noted above. No definite renal abnormalities were identified. Other findings as noted above Chest X-Ray 04/21/17 11:17 IMPRESSION: Minimal right basilar atelectasis Status: Image reviewed by me - agree with rads Assessment & Plan - Diagnosis (1) Gram-negative bacteremia Is this a current diagnosis for this admission?: YesPlan: worse; initial blood cultures show GNR, ID and susc still pending. continue cefepime, may need carbepenem if condition worsens, can't add gent or levaquin due to declining renal function. (2) Ascites Qualifiers: Ascites type: other type Qualified Code(s): R18.8 - Other ascites Is this a current diagnosis for this admission?: YesPlan: worse; unclear etiology. No prior hx of cirrhosis, his albumin is a bit low but still 2.9. he is in renal failure and may have sepsis induced myocardial dysfxn though his measure EF was good 55%. Wonder if SBP could be source of his bacteremia? cover with abx and when condition stabilizes further consider paracentesis but he is still on 2 vasopressors and his INR is climbing in spite of coumadin cessation making risk outweigh the benefit at this point. (3) Cellulitis of leg, right Is this a current diagnosis for this admission?: YesPlan: unchanged; progressive over the last several days to weeks and likely source for his presentation. continue Vanc for at least another day and then per clinical course (4) Septic shock Is this a current diagnosis for this admission?: YesPlan: continue IVFs and attempts to wean off pressors as his condition will allow. (5) Chest pain of uncertain etiology Is this a current diagnosis for this admission?: YesPlan: hx of significant CAD, seeing a rise in his TpIs due to septic shock, will be difficult to differentiate from cardiac source and his echo is reassuring in that not showing new wall motion abnls. (6) Acute hypoxemic respiratory failure Is this a current diagnosis for this admission?: YesPlan: has hx of COPD but not O2 dependent at home. no evidence for acute flare on exam so likely related to sepsis, developing acidosis complicated by increasing abdominal girth due to worsening ascites and further complicated by splinting due to left rib fracture. (7) CHARO (acute kidney injury) Is this a current diagnosis for this admission?: YesPlan: worse; likely hypovolemic related to sepsis. renal dose abx and other meds (8) Anticoagulated on Coumadin Is this a current diagnosis for this admission?: YesPlan: coumadin on hold, INR worsening due to sepsis and abx use (9) Chronic atrial fibrillation Is this a current diagnosis for this admission?: YesPlan: rate controlled (10) Metabolic acidosis Is this a current diagnosis for this admission?: YesPlan: worse. appears to be lactic acidosis from sepsis (11) Left rib fracture Qualifiers: Encounter type: initial encounter Rib fracture type: single rib Fracture type: closed Qualified Code(s): S22.32XA - Fracture of one rib, left side, initial encounter for closed fracture Is this a current diagnosis for this admission?: YesPlan: persistent pain unchanged with resultant splinting and respiratory distress (12) Valvular disease Is this a current diagnosis for this admission?: YesPlan: worse; by echo there appears to be worsening TR and worsening pulm HTN. no pericardial effusion. (13) GERD (gastroesophageal reflux disease) Qualifiers: Esophagitis presence: esophagitis presence not specified Qualified Code (s): K21.9 - Gastro-esophageal reflux disease without esophagitis Is this a current diagnosis for this admission?: Yes (14) CHF (congestive heart failure) Qualifiers: Congestive heart failure type: diastolic Congestive heart failure chronicity: chronic Qualified Code(s): I50.32 - Chronic diastolic ( congestive) heart failure Is this a current diagnosis for this admission?: Yes (15) FABRICIO on CPAP Is this a current diagnosis for this admission?: Yes (16) CAD (coronary artery disease) Qualifiers: Coronary Disease-Associated Artery/Lesion type: bypass graft, autologous vein Associated angina: angina presence unspecified Qualified Code(s) : I25.810 - Atherosclerosis of coronary artery bypass graft(s) without angina pectoris Is this a current diagnosis for this admission?: Yes (17) Hyperlipidemia Qualifiers: Hyperlipidemia type: unspecified Qualified Code(s): E78.5 - Hyperlipidemia, unspecified Is this a current diagnosis for this admission?: Yes - Time Time Spent with patient: 25-34 minutes Medications reviewed and adjusted accordingly: Yes - Plan Summary Plan Summary: overall prognosis remains guarded, outcome very much in doubt, septic shock carries high morbidity and mortality, even more so in someone as sick at baseline as he. he very clearly made himself DNR while still wanting aggressive treatment otherwise.
[2017-04-22] MEDS: IMIPENEM/CILASTATIN SODIUM 500 MG in NORMAL SALINE 100 ML IV SCH ×2 (14:32→21:25)
[2017-04-22 14:55] LABS: PATH REVIEW PATHOLOGIST REVIEWED
[2017-04-22 14:56] LABS: PATH REVIEW PATHOLOGIST REVIEWED
[2017-04-22 14:57] LABS: PATH REVIEW PATHOLOGIST REVIEWED
[2017-04-22] MEDS: TAMSULOSIN HCL 0.4 MG CAP.SR.24H PO SCH (17:33)
[2017-04-22] MEDS: VANCOMYCIN HCL 1,000 MG in DEXTROSE 5%-WATER 250 ML IV SCH (17:57)
[2017-04-22] MEDS: OXYCODONE HCL IR 5 MG TABLET PO PRN (19:37)
[2017-04-22] MEDS: ATORVASTATIN CALCIUM 80 MG TABLET PO SCH (21:26)
[2017-04-23] MEDS: DEXTROSE 5%-WATER 250 ML with PHENYLEPHRINE HCL 40 MG IV PRN ×8 (01:26→19:43)
[2017-04-23] MEDS: RINGERS SOLUTION,LACTATED 1,000 ML IV PRN (05:04)
[2017-04-23] MEDS: IMIPENEM/CILASTATIN SODIUM 500 MG in NORMAL SALINE 100 ML IV SCH ×3 (05:04→21:30)
[2017-04-23] MEDS: HYDROCORTISONE SOD SUCCINATE INJ/PF 100 MG/2 ML SDV IV SCH ×3 (05:04→21:31)
[2017-04-23] MEDS: MORPHINE SULFATE 10 MG/ML INJ IV PRN ×3 (05:14→17:47)
[2017-04-23 05:38] LABS: ALANINE AMINOTRANSFERASE 49 U/L (21-72); ALBUMIN 2.9 g/dL (3.5-5.0); ALKALINE PHOSPHATASE 89 U/L (38-126); ANION GAP 11 (5-19); ASPARTATE AMINO TRANSFERASE 58 U/L (17-59); BILIRUBIN,DIRECT 0.9 mg/dL (0.0-0.4); BILIRUBIN,TOTAL 1.5 mg/dL (0.2-1.3); BLOOD UREA NITROGEN 35 mg/dL (7-20); CALCIUM 8.1 mg/dL (8.4-10.2); CARBON DIOXIDE 21 mmol/L (22-30); CHLORIDE 99 mmol/L (98-107); CREATININE RESULT 2.25 mg/dL (0.52-1.25); GLUCOSE 65 mg/dL (75-110); POTASSIUM 5.7 mmol/L (3.6-5.0); SODIUM 131.2 mmol/L (137-145); TOTAL PROTEIN 5.6 g/dL (6.3-8.2)
[2017-04-23 05:41] LABS: PROTHROMBIN TIME 34.3 SEC (11.4-15.4)
[2017-04-23 05:49] LABS: HEMATOCRIT 39.4 % (37.9-51.0); HEMOGLOBIN 12.6 g/dL (13.5-17.0); HGB HCT DIFFERENCE -1.6; MEAN CORPUSCULAR HEMOGLOBIN 27.7 pg (27.0-33.4); MEAN CORPUSCULAR HGB CONC 31.9 g/dL (32.0-36.0); MEAN CORPUSCULAR VOLUME 87 fl (80-97); RED BLOOD COUNT 4.55 10^6/uL (4.35-5.55); RED CELL DISTRIBUTION WIDTH 16.4 % (11.5-14.0); WHITE BLOOD COUNT 27.6 10^3/uL (4.0-10.5)
[2017-04-23 05:56] LABS: TROPONIN I 0.173 ng/mL
[2017-04-23] MEDS ORDERED: DEXTROSE 5%-NORMAL SALINE 1,000 ML IV PRN ×2 (06:02→08:06)
[2017-04-23] MEDS ORDERED: DEXTROSE 50%-WATER 25 GM/50 ML DISP.SYRIN IV ONE (06:03)
[2017-04-23 06:08] LABS: BAND NEUTROPHILS % (MANUAL) 1 % (3-5); BASOPHILS % (MANUAL) 0 % (0-2); EOSINOPHILS % (MANUAL) 0 % (0-6); LYMPHOCYTES % (MANUAL) 0 % (13-45); TOTAL CELLS COUNTED 100
[2017-04-23 06:11] LABS: ACANTHOCYTES SLIGHT; ANISOCYTOSIS 1+; BURR CELLS 1+; HYPOCHROMASIA SLIGHT; OVALOCYTES 1+; POIKILOCYTOSIS 1+; TOXIC GRANULATION 1+; TOXIC VACUOLATION PRESENT
[2017-04-23] MEDS ORDERED: INSULIN REG, HUMAN 100 UNIT/ML 3 ML VIAL (PYX) IV ONE (06:30)
[2017-04-23] MEDS ORDERED: BISACODYL 10 MG SUPP.RECT PR ONE (08:06)
[2017-04-23] MEDS: OXYCODONE HCL IR 5 MG TABLET PO PRN (08:46)
--- NOTE | 2017-04-23 08:55 | RADIOLOGY REPORT (SQ) ---
EXAM DESCRIPTION: CHEST SINGLE VIEW COMPLETED DATE/TIME: 04/23/2017 8:44 am REASON FOR STUDY: chest pain COMPARISON: AP chest 04/21/2017, 11/20/2015 CT chest 04/21/2017 EXAM PARAMETERS: NUMBER OF VIEWS: One view. TECHNIQUE: Single frontal radiographic view of the chest acquired. RADIATION DOSE: NA LIMITATIONS: None. FINDINGS: LUNGS AND PLEURA: Airspace disease in the right lower lobe is present, asymmetric edema ve rsus pneumonia. Left lung grossly clear aside from chronic bandlike scarring at the lingula. No pleural effusions. No pneumothorax. MEDIASTINUM AND HILAR STRUCTURES: No masses. Contour normal. HEART AND VASCULAR STRUCTURES: Stable moderate to marked cardiomegaly. Mild pulmonary vascular promi nence. BONES: No acute findings. HARDWARE: Old sternotomy and CABG OTHER: No other significant finding. IMPRESSION: New airspace disease at the right lower lobe, asymmetric edema versus pneumonia TECHNICAL DOCUMENTATION: JOB ID: [id number]
--- NOTE | 2017-04-23 08:57 | RADIOLOGY REPORT (SQ) ---
EXAM DESCRIPTION: KUB/ABDOMEN (SINGLE VIEW) COMPLETED DATE/TIME: 04/23/2017 8:44 am REASON FOR STUDY: abdominal pain COMPARISON: CT abdomen pelvis 04/21/2017, 11/16/2015 NUMBER OF VIEWS: One view. TECHNIQUE: Supine radiographic image of the abdomen acquired. LIMITATIONS: None. FINDINGS: BOWEL GAS PATTERN: Air-filled nondistended loops of bowel in the mid abdomen, nonspecific bowel gas pattern. CALCIFICATIONS: No suspicious calcifications. SOFT TISSUES: Hazy density over the abdomen and pelvis from obesity and ascites HARDWARE: Right femoral venous catheter tip in the right external iliac vein. Mcdonnell catheter in the bladder. Radiotherapy treatment seeds in the prostate BONES: No acute fracture. No worrisome bone lesions. OTHER: No other significant finding. IMPRESSION: Nonobstructive bowel gas pattern. TECHNICAL DOCUMENTATION: JOB ID: [id number] [employer]- All Rights Reserved
[2017-04-23] MEDS: PANTOPRAZOLE SODIUM 40 MG VIAL IV SCH ×2 (09:46→21:31)
[2017-04-23] MEDS: ASPIRIN 325 MG TABLET, ENT COATED PO SCH (09:48)
[2017-04-23] MEDS: DOCUSATE SODIUM 100 MG CAPSULE PO SCH (09:48)
[2017-04-23 10:05] LABS: ANION GAP 12 (5-19); BLOOD UREA NITROGEN 37 mg/dL (7-20); CALCIUM 7.9 mg/dL (8.4-10.2); CARBON DIOXIDE 20 mmol/L (22-30); CHLORIDE 100 mmol/L (98-107); CREATININE RESULT 2.31 mg/dL (0.52-1.25); GLUCOSE 104 mg/dL (75-110); POTASSIUM 5.3 mmol/L (3.6-5.0)
--- NOTE | 2017-04-23 11:53 | PDOC PROGRESS REPORT ---
Subjective Progress Note for:: 04/23/17 Subjective:: reason for visit: f/u septic shock, cellulitis, hypoxia, ascites, CHARO hospital course: GENI HERNANDEZ is a 72 year old male presents from home via EMS with reports of 8/10 chest pain ascted with SOA and nausea. ED MD reports relieved with GI cocktail when he was more awake and alert, since that time he has become hypotensive and less responsive. He has received IV morphine and approx 1.5L IVFs with levophed now running at 12mcg and last MAP 57. I can wake him but not long enough to provide a ROS or PMH and his family left when they were told he was to be admitted to the hospital. I spoke with his only surviving first degree relatives, his siblings Anna and Jelani, who report he is to be FULL CODE . Jelani found him on the side of the bathtub this morning c/o n/v "from the bad [place] stew I had last night", apparently kept him up all night with intense burning in his chest asct'd with SOA, dizziness and weakness as well. no reports of diarrhea. Jelain turned to get him something to help and the patient fell back into the tub, possibly striking his head but not sure, there was no LOC and no blood anywhere after the fall and he was alert and talking and making sense afterward. EMS called to find him ill- appearing and transported to the ED for further evaluation. he was given 324mg ASA enroute. eval here seems to reveal septic shock most likely source is his Right leg cellulitis that on further review his brother tells me has been "festering" for a couple of weeks and "he is too hard headed to do anything about it!" Dr Newman has placed a femoral central line for access and we were asked to admit to the ICU for further care. admitted to the ICU with a great deal of difficulty managing his BPs, requiring 2 vasopressors and continued high volume IVF resuscitation. He is also intermittenly BIPAP dependent due to increased WOB without it. overall his condition is stable this morning but now c/o worsening abdominal distension with sharp diffuse pain, nonradiating, worse with certain positions, no alleviating factors; nurse reports no BM since admit. ROS: wearing BiPAP so conversation some limited, he still c/o sharp stabbing left sided chest pain radiating into his epigastrium asct'd with SOA, worse with deep breath and cough resulting in rapid shallow breathing, pain meds seems to make it slightly better. total 10 systems reviewed, remaining systems negative. Physical Exam Vital Signs: Temp Pulse Resp BP Pulse Ox 97.5 F 78 26 H 100/79 96 04/23/17 10:00 04/23/17 10:00 04/23/17 10:00 04/23/17 10:00 04/23/17 10:00 Intake & Output 04/22/17 04/23/17 04/24/17 06:59 06:59 06:59 Intake Total 6193 4278 Output Total 160 1145 30 Balance 6033 3133 -30 Weight 123.3 kg 123.3 kg General appearance: PRESENT: mild distress, morbidly obese, well-developed, well -nourished Head exam: PRESENT: atraumatic, normocephalic Eye exam: ABSENT: conjunctival injection, scleral icterus Mouth exam: PRESENT: dry mucosa, neck supple Neck exam: PRESENT: full ROM. ABSENT: tracheal deviation Respiratory exam: PRESENT: accessory muscle use, rales, retraction, tachypnea. ABSENT: rhonchi, wheezes Cardiovascular exam: PRESENT: RRR. ABSENT: systolic murmur Pulses: PRESENT: normal radial pulses. ABSENT: normal dorsalis pedis pul - diminished GI/Abdominal exam: PRESENT: distended - tympanitic over the epigastrium, firm, hypoactive bowel sounds, tenderness - diffuse, nonlocalizing. ABSENT: guarding Gentrourinary exam: PRESENT: indwelling catheter - dk yellow urine in bag. ABSENT: scrotal swelling Extremities exam: PRESENT: calf tenderness - right, pedal edema Musculoskeletal exam: PRESENT: full ROM Neurological exam: PRESENT: awake, oriented to person, oriented to place, oriented to situation. ABSENT: alert Psychiatric exam: PRESENT: agitated, anxious Skin exam: PRESENT: warm - rt leg remains erythematous and hot to touch, improved lymghangitic streaking Results Laboratory Results: 04/23/17 04:45 04/23/17 08:40 04/21/17 04/21/17 04/22/17 16:00 22:15 05:11 WBC 22.3 H D 28.1 H 32.9 H* RBC 4.89 4.98 5.09 Hgb 13.4 L 13.8 14.0 Hct 42.6 44.0 44.6 MCV 87 89 88 MCH 27.4 27.8 27.5 MCHC 31.4 L 31.4 L 31.5 L RDW 16.3 H 16.2 H 16.8 H Plt Count 168 179 171 Seg Neutrophils % Lymphocytes % Monocytes % Eosinophils % Basophils % Absolute Neutrophils Absolute Lymphocytes Absolute Monocytes Absolute Eosinophils Absolute Basophils Sodium Potassium Chloride Carbon Dioxide Anion Gap BUN Creatinine Est GFR ( Amer) Est GFR (Non-Af Amer) Glucose Calcium Total Bilirubin AST ALT Alkaline Phosphatase Total Protein Albumin 04/23/17 04/23/17 04/23/17 04:45 04:45 08:40 WBC 27.6 H RBC 4.55 Hgb 12.6 L Hct 39.4 MCV 87 MCH 27.7 MCHC 31.9 L RDW 16.4 H Plt Count 124 L Seg Neutrophils % Not Reportable Lymphocytes % Not Reportable Monocytes % Not Reportable Eosinophils % Not Reportable Basophils % Not Reportable Absolute Neutrophils Not Reportable Absolute Lymphocytes Not Reportable Absolute Monocytes Not Reportable Absolute Eosinophils Not Reportable Absolute Basophils Not Reportable Sodium 131.2 L 132.0 L Potassium 5.7 H 5.3 H Chloride 99 100 Carbon Dioxide 21 L 20 L Anion Gap 11 12 BUN 35 H 37 H Creatinine 2.25 H 2.31 H Est GFR ( Amer) 35 L 34 L Est GFR (Non-Af Amer) 29 L 28 L Glucose 65 L 104 Calcium 8.1 L 7.9 L Total Bilirubin 1.5 H AST 58 ALT 49 Alkaline Phosphatase 89 Total Protein 5.6 L Albumin 2.9 L 04/21/17 04/21/17 04/21/17 10:09 10:09 16:00 Troponin I 0.050 Cancelled 0.109 NT-Pro-B Natriuret Pep 04/21/17 04/23/17 22:15 04:45 Troponin I 0.332 0.173 NT-Pro-B Natriuret Pep 91519 H Impressions: Abdomen/Pelvis CT 04/21/17 00:00 IMPRESSION: Left lateral 10th rib fracture Right basilar atelectasis. Left lung base chronic scarring. Moderate ascites throughout the abdomen and pelvis Chest CT 04/21/17 00:00 IMPRESSION: Left lateral 10th rib fracture Right basilar atelectasis. Left lung base chronic scarring. Moderate ascites throughout the abdomen and pelvis Head CT 04/21/17 00:00 IMPRESSION: Limited study due to motion artifact. Chronic white matter disease. No gross acute intracranial changes. Renal Ultrasound 04/21/17 00:00 IMPRESSION: Limited study as noted above. No definite renal abnormalities were identified. Other findings as noted above Chest X-Ray 04/23/17 00:00 IMPRESSION: New airspace disease at the right lower lobe, asymmetric edema versus pneumonia KUB X-Ray 04/23/17 00:00 IMPRESSION: Nonobstructive bowel gas pattern. Status: Image reviewed by me - agree with rads Assessment & Plan - Diagnosis (1) Pneumonia Qualifiers: Pneumonia type: due to unspecified organism Laterality: right Lung location: lower lobe of lung Qualified Code(s): J18.1 - Lobar pneumonia, unspecified organism Is this a current diagnosis for this admission?: YesPlan: worse; unclear if this blossomed on imaging after fluid resuscitation and POA or if occurred later, I suspect the former. nevertheless he is on broad spectrum abx and should be covered either way. (2) Gram-negative bacteremia Is this a current diagnosis for this admission?: YesPlan: no change; Imipenem #2, still waiting on final culx results to narrow (3) Ascites Qualifiers: Ascites type: other type Qualified Code(s): R18.8 - Other ascites Is this a current diagnosis for this admission?: YesPlan: worse; unclear etiology. No prior hx of cirrhosis, his albumin is a bit low but still 2.9. he is in renal failure and may have sepsis induced myocardial dysfxn though his measured LVEF was good 55%, I suspect RV dysfxn. Wonder if SBP could be source of his bacteremia? cover with abx and when condition stabilizes further consider paracentesis but he is still on vasopressor and his INR is climbing in spite of coumadin cessation making risk outweigh the benefit at this point. (4) Cellulitis of leg, right Is this a current diagnosis for this admission?: YesPlan: mildly improved; progressive over the last several days to weeks and likely source for his presentation. continue Vanc (5) Septic shock Is this a current diagnosis for this admission?: YesPlan: continue IVFs and attempts to wean off pressors as his condition will allow., now down to only eleuterio at 80mcg (6) Chest pain of uncertain etiology Is this a current diagnosis for this admission?: YesPlan: unchanged; likely 2/2 left rib fx; hx of significant CAD, seeing a rise in his TpIs due to septic shock, will be difficult to differentiate from cardiac source and his echo is reassuring in that not showing new wall motion abnls. (7) Acute hypoxemic respiratory failure Is this a current diagnosis for this admission?: YesPlan: unchanged, pehaps a bit worse. has hx of COPD but not O2 dependent at home. no evidence for acute flare on exam so likely related to sepsis, developing acidosis complicated by increasing abdominal girth due to worsening ascites and further complicated by splinting due to left rib fracture. (8) CHARO (acute kidney injury) Is this a current diagnosis for this admission?: YesPlan: worse; likely hypovolemic related to sepsis. renal dose abx and other meds (9) Adynamic ileus Is this a current diagnosis for this admission?: YesPlan: new and likely related to the worsening ascites, meds and overall condition - trial of dulcolax and monitor for effect (10) Anticoagulated on Coumadin Is this a current diagnosis for this admission?: YesPlan: coumadin on hold, INR worsening due to sepsis and abx use (11) Chronic atrial fibrillation Is this a current diagnosis for this admission?: YesPlan: rate controlled (12) Metabolic acidosis Is this a current diagnosis for this admission?: YesPlan: stable but not back to baseline; combination of lactic acidosis and renal failure, continue IVFs and monitor (13) Left rib fracture Qualifiers: Encounter type: initial encounter Rib fracture type: single rib Fracture type: closed Qualified Code(s): S22.32XA - Fracture of one rib, left side, initial encounter for closed fracture Is this a current diagnosis for this admission?: Yes (14) Valvular disease Is this a current diagnosis for this admission?: Yes (15) GERD (gastroesophageal reflux disease) Qualifiers: Esophagitis presence: esophagitis presence not specified Qualified Code (s): K21.9 - Gastro-esophageal reflux disease without esophagitis Is this a current diagnosis for this admission?: Yes (16) CHF (congestive heart failure) Qualifiers: Congestive heart failure type: diastolic Congestive heart failure chronicity: chronic Qualified Code(s): I50.32 - Chronic diastolic ( congestive) heart failure Is this a current diagnosis for this admission?: Yes (17) FABRICIO on CPAP Is this a current diagnosis for this admission?: Yes (18) CAD (coronary artery disease) Qualifiers: Coronary Disease-Associated Artery/Lesion type: bypass graft, autologous vein Associated angina: angina presence unspecified Qualified Code(s) : I25.810 - Atherosclerosis of coronary artery bypass graft(s) without angina pectoris Is this a current diagnosis for this admission?: Yes (19) Hyperlipidemia Qualifiers: Hyperlipidemia type: unspecified Qualified Code(s): E78.5 - Hyperlipidemia, unspecified Is this a current diagnosis for this admission?: Yes - Time Time Spent with patient: 35 or more minutes Medications reviewed and adjusted accordingly: Yes - Plan Summary Plan Summary: overall prognosis remains guarded, outcome very much in doubt, septic shock carries high morbidity and mortality, even more so in someone as sick at baseline as he. he very clearly made himself DNR while still wanting aggressive treatment otherwise.
[2017-04-23] MEDS ORDERED: DEXTROSE 5%-NORMAL SALINE 1,000 ML IV ONE (14:19)
[2017-04-23] MEDS ORDERED: SODIUM BICARBONATE 8.4% INJ 50 MEQ/50 ML DISP.SYRIN IV ONE (15:15)
[2017-04-23] MEDS: MAGNESIUM SULFATE/D5W 1 GM/100 ML RTUPB IV SCH ×2 (15:56→17:47)
[2017-04-23] MEDS: VANCOMYCIN HCL 1,000 MG in DEXTROSE 5%-WATER 250 ML IV SCH (17:46)
[2017-04-23] MEDS: TAMSULOSIN HCL 0.4 MG CAP.SR.24H PO SCH (17:48)
[2017-04-23] MEDS: ATORVASTATIN CALCIUM 80 MG TABLET PO SCH (21:31)
[2017-04-24] MEDS ORDERED: PHENYLEPHRINE HCL INJ/PF 10 MG/1 ML SDV ONE ×2 (00:32→04:33)
[2017-04-24] MEDS: DEXTROSE 5%-WATER 250 ML with PHENYLEPHRINE HCL 40 MG IV PRN ×6 (00:34→10:43)
[2017-04-24] MEDS: DEXTROSE 5%-NORMAL SALINE 1,000 ML IV PRN ×2 (02:30→09:51)
[2017-04-24] MEDS: MORPHINE SULFATE 10 MG/ML INJ IV PRN ×3 (02:37→14:13)
[2017-04-24] MEDS: HYDROCORTISONE SOD SUCCINATE INJ/PF 100 MG/2 ML SDV IV SCH ×2 (05:00→13:53)
[2017-04-24] MEDS: IMIPENEM/CILASTATIN SODIUM 500 MG in NORMAL SALINE 100 ML IV SCH ×2 (05:00→13:53)
[2017-04-24 05:26] LABS: HEMOGLOBIN 12.8 g/dL (13.5-17.0); HGB HCT DIFFERENCE -1.6; MEAN CORPUSCULAR HEMOGLOBIN 28.1 pg (27.0-33.4); MEAN CORPUSCULAR HGB CONC 31.9 g/dL (32.0-36.0); MEAN CORPUSCULAR VOLUME 88 fl (80-97); RED BLOOD COUNT 4.54 10^6/uL (4.35-5.55); RED CELL DISTRIBUTION WIDTH 16.6 % (11.5-14.0); WHITE BLOOD COUNT 28.5 10^3/uL (4.0-10.5)
[2017-04-24 05:41] LABS: ALANINE AMINOTRANSFERASE 162 U/L (21-72); ALBUMIN 2.9 g/dL (3.5-5.0); ALKALINE PHOSPHATASE 100 U/L (38-126); ANION GAP 13 (5-19); ASPARTATE AMINO TRANSFERASE 413 U/L (17-59); BILIRUBIN,TOTAL 1.4 mg/dL (0.2-1.3); BLOOD UREA NITROGEN 42 mg/dL (7-20); CALCIUM 7.6 mg/dL (8.4-10.2); CARBON DIOXIDE 19 mmol/L (22-30); CHLORIDE 100 mmol/L (98-107); CREATININE RESULT 2.87 mg/dL (0.52-1.25); GLUCOSE 159 mg/dL (75-110); POTASSIUM 5.6 mmol/L (3.6-5.0); SODIUM 132.1 mmol/L (137-145); TOTAL PROTEIN 5.5 g/dL (6.3-8.2)
[2017-04-24 06:18] LABS: BAND NEUTROPHILS % (MANUAL) 20 % (3-5); BASOPHILS % (MANUAL) 0 % (0-2); EOSINOPHILS % (MANUAL) 0 % (0-6); LYMPHOCYTES % (MANUAL) 3 % (13-45); TOTAL CELLS COUNTED 100
[2017-04-24 06:21] LABS: TOXIC GRANULATION 2+; TOXIC VACUOLATION PRESENT
[2017-04-24 06:23] LABS: ANISOCYTOSIS 1+; OVALOCYTES 1+; POIKILOCYTOSIS SLIGHT; POLYCHROMASIA SLIGHT
[2017-04-24 07:21] LABS: PROTHROMBIN TIME 54.4 SEC (11.4-15.4)
[2017-04-24] MEDS: PANTOPRAZOLE SODIUM 40 MG VIAL IV SCH (09:42)
[2017-04-24] MEDS: ASPIRIN 325 MG TABLET, ENT COATED PO SCH (09:43)
[2017-04-24] MEDS: DOCUSATE SODIUM 100 MG CAPSULE PO SCH (09:43)
--- NOTE | 2017-04-24 11:12 | PDOC PROGRESS REPORT ---
Subjective Progress Note for:: 04/24/17 Subjective:: reason for visit: f/u septic shock, cellulitis, hypoxia, ascites, CHARO hospital course: GENI HERNANDEZ is a 72 year old male presents from home via EMS with reports of 8/10 chest pain ascted with SOA and nausea. ED MD reports relieved with GI cocktail when he was more awake and alert, since that time he has become hypotensive and less responsive. He has received IV morphine and approx 1.5L IVFs with levophed now running at 12mcg and last MAP 57. I can wake him but not long enough to provide a ROS or PMH and his family left when they were told he was to be admitted to the hospital. I spoke with his only surviving first degree relatives, his siblings Anna and Jelani, who report he is to be FULL CODE . Jelani found him on the side of the bathtub this morning c/o n/v "from the dough stew I had last night", apparently kept him up all night with intense burning in his chest asct'd with SOA, dizziness and weakness as well. no reports of diarrhea. Jelani turned to get him something to help and the patient fell back into the tub, possibly striking his head but not sure, there was no LOC and no blood anywhere after the fall and he was alert and talking and making sense afterward. EMS called to find him ill- appearing and transported to the ED for further evaluation. he was given 324mg ASA enroute. eval here seems to reveal septic shock most likely source is his Right leg cellulitis that on further review his brother tells me has been "festering" for a couple of weeks and "he is too hard headed to do anything about it!" Dr Newman has placed a femoral central line for access and we were asked to admit to the ICU for further care. admitted to the ICU with a great deal of difficulty managing his BPs, requiring 2 vasopressors and continued high volume IVF resuscitation. He is also intermittenly BIPAP dependent due to increased WOB without it. overall his condition is deteriorating this morning with worsening abdominal sharp diffuse pain, nonradiating, worse with certain positions, no alleviating factors in spite of BM yesterday after dulcolax, worsening mental state with apparent hallucinations as he reaches for things in the air, will only moan responses to questions, decreasing urine output, rising LFTs and coags, worsening edema, persistent shock. ROS: wearing BiPAP and confused so conversation limited and reliable ROS unobtainable Physical Exam Vital Signs: Temp Pulse Resp BP Pulse Ox 97.9 F 77 10 L 86/67 L 100 04/24/17 10:00 04/24/17 08:00 04/24/17 10:00 04/24/17 09:54 04/24/17 10:00 Intake & Output 04/23/17 04/24/17 04/25/17 06:59 06:59 06:59 Intake Total 4278 4148 Output Total 1145 135 0 Balance 3133 4013 0 Weight 123.3 kg 131.2 kg General appearance: PRESENT: mild distress, morbidly obese, well-developed, well -nourished Head exam: PRESENT: atraumatic, normocephalic Eye exam: PRESENT: EOMI. ABSENT: conjunctival injection, scleral icterus Mouth exam: PRESENT: dry mucosa, other - BiPAP in place Teeth exam: PRESENT: poor dentation Neck exam: ABSENT: tracheal deviation Respiratory exam: PRESENT: accessory muscle use, chest wall tenderness - left chest wall, crackles, rales, retraction, tachypnea. ABSENT: rhonchi, wheezes Cardiovascular exam: PRESENT: RRR, systolic murmur. ABSENT: tachycardia Pulses: PRESENT: normal radial pulses Vascular exam: ABSENT: normal capillary refill - cool and clammy extremities, diminished cap refill GI/Abdominal exam: PRESENT: distended - tympanitic, firm, hypoactive bowel sounds, tenderness - diffuse moaning with percussion. ABSENT: guarding, rigid Gentrourinary exam: PRESENT: indwelling catheter - scant, dk yellow urine Extremities exam: PRESENT: other - 3+ diffuse edema hands, feet, legs, dependent tissues Neurological exam: PRESENT: altered Psychiatric exam: PRESENT: agitated, anxious Focused psych exam: PRESENT: psychomotor agitation Skin exam: PRESENT: rash - erythema worsening on the Rt leg as his edema also worsens. ABSENT: dry - moist, warm - cool looc Results Laboratory Results: 04/24/17 04:55 04/24/17 04:55 04/24/17 04/24/17 04:55 04:55 WBC 28.5 H RBC 4.54 Hgb 12.8 L Hct 40.0 MCV 88 MCH 28.1 MCHC 31.9 L RDW 16.6 H Plt Count 128 L Seg Neutrophils % Not Reportable Lymphocytes % Not Reportable Monocytes % Not Reportable Eosinophils % Not Reportable Basophils % Not Reportable Absolute Neutrophils Not Reportable Absolute Lymphocytes Not Reportable Absolute Monocytes Not Reportable Absolute Eosinophils Not Reportable Absolute Basophils Not Reportable Sodium 132.1 L Potassium 5.6 H Chloride 100 Carbon Dioxide 19 L Anion Gap 13 BUN 42 H Creatinine 2.87 H Est GFR ( Amer) 26 L Est GFR (Non-Af Amer) 22 L Glucose 159 H Calcium 7.6 L Total Bilirubin 1.4 H AST 413 H ALT 162 H Alkaline Phosphatase 100 Total Protein 5.5 L Albumin 2.9 L 04/22/17 09:45 Catheterized Urine Urine Culture - Final NO GROWTH 2 DAYS 04/21/17 04/21/17 04/21/17 10:09 10:09 16:00 Troponin I 0.050 Cancelled 0.109 NT-Pro-B Natriuret Pep 04/21/17 04/23/17 04/24/17 22:15 04:45 04:55 Troponin I 0.332 0.173 NT-Pro-B Natriuret Pep 59578 H 44774 H Impressions: Abdomen/Pelvis CT 04/21/17 00:00 IMPRESSION: Left lateral 10th rib fracture Right basilar atelectasis. Left lung base chronic scarring. Moderate ascites throughout the abdomen and pelvis Chest CT 04/21/17 00:00 IMPRESSION: Left lateral 10th rib fracture Right basilar atelectasis. Left lung base chronic scarring. Moderate ascites throughout the abdomen and pelvis Head CT 04/21/17 00:00 IMPRESSION: Limited study due to motion artifact. Chronic white matter disease. No gross acute intracranial changes. Renal Ultrasound 04/21/17 00:00 IMPRESSION: Limited study as noted above. No definite renal abnormalities were identified. Other findings as noted above Chest X-Ray 04/23/17 00:00 IMPRESSION: New airspace disease at the right lower lobe, asymmetric edema versus pneumonia KUB X-Ray 04/23/17 00:00 IMPRESSION: Nonobstructive bowel gas pattern. Status: Image reviewed by me - agree with rads Assessment & Plan - Diagnosis (1) Pneumonia Qualifiers: Pneumonia type: due to unspecified organism Laterality: right Lung location: lower lobe of lung Qualified Code(s): J18.1 - Lobar pneumonia, unspecified organism Is this a current diagnosis for this admission?: YesPlan: worse again today; unclear if this blossomed on imaging after fluid resuscitation and POA or if occurred later, I suspect the former. nevertheless he is on broad spectrum abx and should be covered either way but is failing. (2) Gram-negative bacteremia Is this a current diagnosis for this admission?: YesPlan: no change; Imipenem #3, still waiting on final culx results to narrow (3) Ascites Qualifiers: Ascites type: other type Qualified Code(s): R18.8 - Other ascites Is this a current diagnosis for this admission?: YesPlan: worse; unclear etiology. No prior hx of cirrhosis, his albumin is a bit low at presentation but still 2.9. his renal failure is worsening and may have sepsis induced myocardial dysfxn though his measured LVEF was good 55%, I suspect RV dysfxn. Wonder if SBP could be source of his bacteremia? covering with abx and condition too unstable to consider paracentesis and he is still on vasopressor and his INR is climbing in spite of coumadin cessation making risk outweigh the benefit at this point. (4) Cellulitis of leg, right Is this a current diagnosis for this admission?: YesPlan: worse; progressive over the last several days to weeks and likely source for his presentation. continue Vanc (5) Septic shock Is this a current diagnosis for this admission?: YesPlan: worse; continue IVFs and attempts to wean off pressors as his condition will allow. back up to eleuterio at 110mcg (6) Acute hypoxemic respiratory failure Is this a current diagnosis for this admission?: YesPlan: worse. has hx of COPD but not O2 dependent at home. no evidence for acute flare on exam so likely related to sepsis, developing acidosis complicated by increasing abdominal girth due to worsening ascites and further complicated by splinting due to left rib fracture. (7) CHARO (acute kidney injury) Is this a current diagnosis for this admission?: YesPlan: worse; looks like probable ATN from sepsis and shock and now in MSOF. renal dose abx and other meds (8) Adynamic ileus Is this a current diagnosis for this admission?: YesPlan: worse in spite of BM and likely related to the worsening ascites, meds and overall condition (9) Coagulopathy Is this a current diagnosis for this admission?: YesPlan: worse, possible DIC, probably sepsis driven (10) Anticoagulated on Coumadin Is this a current diagnosis for this admission?: Yes (11) Chronic atrial fibrillation Is this a current diagnosis for this admission?: Yes (12) Metabolic acidosis Is this a current diagnosis for this admission?: Yes (13) Left rib fracture Qualifiers: Encounter type: initial encounter Rib fracture type: single rib Fracture type: closed Qualified Code(s): S22.32XA - Fracture of one rib, left side, initial encounter for closed fracture Is this a current diagnosis for this admission?: Yes (14) Valvular disease Is this a current diagnosis for this admission?: Yes (15) GERD (gastroesophageal reflux disease) Qualifiers: Esophagitis presence: esophagitis presence not specified Qualified Code (s): K21.9 - Gastro-esophageal reflux disease without esophagitis Is this a current diagnosis for this admission?: Yes (16) CHF (congestive heart failure) Qualifiers: Congestive heart failure type: diastolic Congestive heart failure chronicity: chronic Qualified Code(s): I50.32 - Chronic diastolic ( congestive) heart failure Is this a current diagnosis for this admission?: Yes (17) FABRICIO on CPAP Is this a current diagnosis for this admission?: Yes (18) CAD (coronary artery disease) Qualifiers: Coronary Disease-Associated Artery/Lesion type: bypass graft, autologous vein Associated angina: angina presence unspecified Qualified Code(s) : I25.810 - Atherosclerosis of coronary artery bypass graft(s) without angina pectoris Is this a current diagnosis for this admission?: Yes (19) Hyperlipidemia Qualifiers: Hyperlipidemia type: unspecified Qualified Code(s): E78.5 - Hyperlipidemia, unspecified Is this a current diagnosis for this admission?: Yes (20) Chest pain of uncertain etiology Is this a current diagnosis for this admission?: NoPlan: 2/2 left rib fracture - Time Time Spent with patient: 35 or more minutes - Plan Summary Plan Summary: prognosis is grim as he continues toward multi-organ system failure in spite of treatment. he made it clear early on that he didn't want aggressive invasive interventions and so we have reached the maximum of what he would want us to do and still he falters, teetering on the brink of complete system failure. I feel like a change to palliative care is now warranted but his brother Jelani is only member available and is in no mental/emotional state to make that decision , deferring to his sister Anna instead who should be available for consultation later today.
[2017-04-24] MEDS ORDERED: DILTIAZEM HCL/D5W 0 MG/0 ML RTUINJ IV ONE (11:13)
[2017-04-24] MEDS ORDERED: ATROPINE SULFATE 1% OPH SOLN 5 ML BOTTLE SL PRN (14:49)
[2017-04-24] MEDS ORDERED: LORAZEPAM INJ 2 MG/1 ML VIAL IV PRN (14:49)
[2017-04-24] MEDS ORDERED: MORPHINE SULFATE 10 MG/ML INJ IV PRN (14:51)
[2017-04-24] MEDS ORDERED: DEXTROSE 5%-NORMAL SALINE 1,000 ML IV PRN (14:51)
[2017-04-24] MEDS ORDERED: ACETAMINOPHEN 650 MG SUPP.RECT PR PRN (14:53)
[2017-04-24] MEDS ORDERED: SCOPOLAMINE HYDROBROMIDE 1.5 MG PATCH.TD72 TD SCH (16:00)
[2017-04-24 17:11] VITALS: BP 90/58
--- NOTE | 2017-04-24 18:46 | Death Summary ---
Summary Date : 04/24/17 Time of :: 17:50 Autopsy: No Resuscitation Status: Comfort Measures Only - Final Diagnosis (1) Pneumonia Is this a current diagnosis for this admission?: Yes (2) Gram-negative bacteremia Is this a current diagnosis for this admission?: Yes (3) Ascites Is this a current diagnosis for this admission?: Yes (4) Cellulitis of leg, right Is this a current diagnosis for this admission?: Yes (5) Septic shock Is this a current diagnosis for this admission?: Yes (6) Acute hypoxemic respiratory failure Is this a current diagnosis for this admission?: Yes (7) CHARO (acute kidney injury) Is this a current diagnosis for this admission?: Yes (8) Adynamic ileus Is this a current diagnosis for this admission?: Yes (9) Coagulopathy Is this a current diagnosis for this admission?: Yes (10) Anticoagulated on Coumadin Is this a current diagnosis for this admission?: Yes (11) Chronic atrial fibrillation Is this a current diagnosis for this admission?: Yes (12) Metabolic acidosis Is this a current diagnosis for this admission?: Yes (13) Left rib fracture Is this a current diagnosis for this admission?: Yes (14) Valvular disease Is this a current diagnosis for this admission?: Yes (15) GERD (gastroesophageal reflux disease) Is this a current diagnosis for this admission?: Yes (16) CHF (congestive heart failure) Is this a current diagnosis for this admission?: Yes (17) FABRICIO on CPAP Is this a current diagnosis for this admission?: Yes (18) CAD (coronary artery disease) Is this a current diagnosis for this admission?: Yes (19) Hyperlipidemia Is this a current diagnosis for this admission?: Yes (20) Chest pain of uncertain etiology Is this a current diagnosis for this admission?: No Hospital Course:: hospital course: GENI HERNANDEZ is a 72 year old male presents from home via EMS with reports of 8/10 chest pain ascted with SOA and nausea. ED MD reports relieved with GI cocktail when he was more awake and alert, since that time he has become hypotensive and less responsive. He has received IV morphine and approx 1.5L IVFs with levophed now running at 12mcg and last MAP 57. I can wake him but not long enough to provide a ROS or PMH and his family left when they were told he was to be admitted to the hospital. I spoke with his only surviving first degree relatives, his siblings Anna and Jelani, who report he is to be FULL CODE . Jelani found him on the side of the bathtub this morning c/o n/v "from the bad [place]berry stew I had last night", apparently kept him up all night with intense burning in his chest asct'd with SOA, dizziness and weakness as well. no reports of diarrhea. Jelani turned to get him something to help and the patient fell back into the tub, possibly striking his head but not sure, there was no LOC and no blood anywhere after the fall and he was alert and talking and making sense afterward. EMS called to find him ill- appearing and transported to the ED for further evaluation. he was given 324mg ASA enroute. eval here seems to reveal septic shock most likely source is his Right leg cellulitis that on further review his brother tells me has been "festering" for a couple of weeks and "he is too hard headed to do anything about it!" Dr Newman has placed a femoral central line for access and we were asked to admit to the ICU for further care. admitted to the ICU with a great deal of difficulty managing his BPs, requiring 2 vasopressors and continued high volume IVF resuscitation. He is also intermittenly BIPAP dependent due to increased WOB without it. overall his condition is deteriorating this morning with worsening abdominal sharp diffuse pain, nonradiating, worse with certain positions, no alleviating factors in spite of BM yesterday after dulcolax, worsening mental state with apparent hallucinations as he reaches for things in the air, will only moan responses to questions, decreasing urine output, rising LFTs and coags, worsening edema, persistent shock. after much time (>1 hour) spent in consultation with his siblings, they confirmed he would not want all this treatment and would like to change him to comfort measures only. I explained that he likely would not survive more than a couple hours without them and they insist this is in accordance with his wishes. Shortly after we stopped his BIPAP and eleuterio he passed, succumbing to multi organ system failure from his septic shock as result of pseudomonas bacteremia. family at bedside, all concerns and questions addressed, they seem happy with the care he received here
== END 2017-04-24 17:50 | DRG 871 ==
LOC: ER 05:26 → EH 09:06 → UNDOADMIN 09:06 → EH 10:05 → ICU 11:43
PROVIDERS: ADMIT Internal Medicine; ATTEND Internal Medicine
PROC: 06HM33Z Insertion of Infusion Device into Right Femoral Vein, Percutaneous Approach (ICD-10-PCS; principal; 2017-04-21)
PROC: B54BZZA Ultrasonography of Right Lower Extremity Veins, Guidance (ICD-10-PCS; 2017-04-21)
DX: A41.52 Sepsis due to Pseudomonas (principal); J18.9 Pneumonia, unspecified organism; J96.01 Acute respiratory failure with hypoxia; R65.21 Severe sepsis with septic shock; L03.115 Cellulitis of right lower limb; N17.9 Acute kidney failure, unspecified; I50.32 Chronic diastolic (congestive) heart failure; E87.2 Acidosis; I25.810 Atherosclerosis of coronary artery bypass graft(s) without angina pectoris; S22.32XA Fracture of one rib, left side, initial encounter for closed fracture; R18.8 Other ascites; K56.0 Paralytic ileus; I48.2 Chronic atrial fibrillation; J44.9 Chronic obstructive pulmonary disease, unspecified; I11.0 Hypertensive heart disease with heart failure; E78.5 Hyperlipidemia, unspecified; N40.0 Benign prostatic hyperplasia without lower urinary tract symptoms; G47.33 Obstructive sleep apnea (adult) (pediatric); K21.9 Gastro-esophageal reflux disease without esophagitis; M54.9 Dorsalgia, unspecified; W18.09XA Striking against other object with subsequent fall, initial encounter; Y93.9 Activity, unspecified; Y92.012 Bathroom of single-family (private) house as the place of occurrence of the external cause; Z79.01 Long term (current) use of anticoagulants; Z79.82 Long term (current) use of aspirin; Z79.899 Other long term (current) drug therapy
CPT/HCPCS: 36415; 70450; 71010; 71250; 74000; 74176; 76770; 80048; 80053; 81001; 82550; 82553; 82803; 83605; 83690; 83735; 83880; 84439; 84443; 84481; 84484; 85025; 85610; 85730; 87040; 87077; 87086; 87186; 93005; 93010; 93306; 94640; 94660; 96365; 96375; 96376; 99291; C1751; J0692; J0743; J1335; J1720; J1815; J2270; J2370; J2405; J3370; J3475; J3490; J7030; J7050; J7060; J7120; J7620; S0028; S0164